=== PATIENT | female | born 1955 | race Caucasian/White ===

== ENCOUNTER 2016-10-07 16:45 | Inpatient (IN) | payer OTHER ==
[~2016-10-07] VITALS: Ht 165.1 cm; Wt 54.4 kg
[~2016-10-07 16:45] MED LIST: ALBU8.5H3; ASPI-535; CLON-429; FLUO20CA38; MAGN2400; METO-448; QUET400T; TEMA30CA6
[2016-10-07] MEDS ORDERED: LEVALBUTEROL (NEB) 1.25 MG/0.5 ML AMP INH STA (16:47)
[2016-10-07] MEDS ORDERED: SOD CHLORIDE 0.9% 500 ML IV STA (16:47)
[2016-10-07] MEDS ORDERED: ALBUTEROL 0.5% (NEB) 2.5 MG/0.5 ML AMP INH STA (16:47)
[2016-10-07] MEDS ORDERED: LEVOFLOXACIN 500MG/D5W (PMX) 100 ML IV STA (16:47)
[2016-10-07] MEDS ORDERED: MAGNESIUM SULFATE 2 GM/50 ML 50 ML IVPB STA (16:47)
[2016-10-07] MEDS ORDERED: METHYLPREDNISOLONE 125 MG INJ IV STA (16:47)
[2016-10-07] MEDS ORDERED: TERBUTALINE 1 MG/ML INJ SC STA (16:47)
[2016-10-07] MEDS ORDERED: IPRATROPIUM (NEB) 0.5 MG/2.5 ML AMP INH STA (16:52)
[2016-10-07] MEDS ORDERED: IPRATROPIUM (NEB) 0.5 MG/2.5 ML AMP ONE (16:53)
[2016-10-07 17:11] LABS: ADD SCAN DIFF NO
[2016-10-07 17:13] LABS: BASOPHILS % 0.2 % (0.0-2.0); EOSINOPHILS # 0.1 10^3/ul (0.0-0.5); EOSINOPHILS % 0.7 % (0.0-7.0); HEMATOCRIT 34.8 % (37.0-47.0); HEMOGLOBIN 11.3 g/dl (12.0-16.0); LYMPHOCYTES # 1.3 10^3/ul (0.8-2.9); LYMPHOCYTES % 11.3 % (15.0-51.0); MEAN CORPUSCULAR HEMOGLOBIN 27.8 pg (29.0-33.0); MEAN CORPUSCULAR HGB CONC 32.5 g/dl (32.0-37.0); MEAN CORPUSCULAR VOLUME 85.7 fl (82.0-101.0); MEAN PLATELET VOLUME 8.6 fl (7.4-10.4); MONOCYTE # 0.8 10^3/ul (0.3-0.9); NEUTROPHIL # 9.2 10^3/ul (1.6-7.5); NEUTROPHILS % 80.3 % (39.0-77.0); PLATELET COUNT 360 10^3/UL (140-415); RED BLOOD COUNT 4.06 10^6/ul (4.20-5.40); RED CELL DISTRIBUTION WIDTH 11.8 % (11.5-14.5); WHITE BLOOD COUNT 11.5 10^3/ul (4.8-10.8)
[2016-10-07] MEDS ORDERED: EPINEPHrine 1 MG INJ IM STA (17:16)
--- NOTE | 2016-10-07 17:32 | ERA ---
ER Documentation Chief Complaint Date/Time DATE: 10/07/16 TIME: 17:27 Chief Complaint COPD FLARE UP SOB SINCE 3 AM THIS MORNING HPI 61-year-old female history of remote smoking with COPD who presents with COPD flare. She states that she had a recent hospitalization approximately 1-2 weeks ago at [facility]. She has worsening symptoms over the last week despite taking her medications. No chest pain, no pleuritic pain, no calf swelling, no fevers or chills. ROS All systems reviewed and are negative except as per history of present illness. Medications Home Meds Reported Medications Hydroxyzine Hcl* (Hydroxyzine Hcl*) 25 Mg Tablet, 25 MG PO Q8H Y for ITCHING, # 30 TAB 10/07/16 Paliperidone (Invega) 1.5 Mg Tab.er.24, 1.5 MG PO DAILY, TAB 10/07/16 Tiotropium [place]* (Spiriva*) 18 Mcg Cap.w.dev, 1 CAP INHALATION DAILY, #30 CAP 10/07/16 Clomipramine Hcl* (Clomipramine Hcl*) 75 Mg Capsule, 75 MG PO DAILY, CAP 10/07/16 Salmeterol Xinaf/Fluticasone* (Advair*) 250-50 Diskus Inhaler, 1 INH INHALATION BID, #1 INHALER 10/07/16 Clonazepam* (Clonazepam*) 1 Mg Tablet, 1 MG PO Q8H Y for ANXIETY, TAB 10/07/16 Discontinued Reported Medications Aspirin Ec (Aspir 81) 81 Mg Tablet.dr 09/18/09 Metoprolol Tartrate* (Lopressor*) 25 Mg Tab 09/18/09 Fluoxetine Hcl* (Prozac*) 20 Mg Capsule 09/18/09 Temazepam* (Restoril*) 30 Mg Capsule 09/18/09 Clonazepam* (Klonopin*) 0.5 Mg Tab 09/18/09 Quetiapine Fumarate* (Seroquel*) 400 Mg Tablet 09/18/09 Albuterol Sulfate* (Proair HFA*) 8.5 Gm Hfa.aer.ad 09/18/09 Magnesium Hydroxide* (Milk Of Magnesia*) 800 Mg/5 Ml Oral.susp 09/18/09 Allergies Allergies: Coded Allergies: Penicillins (Verified Allergy, Mild, RASH, 10/07/16) PMhx/Soc History of Surgery: Yes (TUBES TIED) Anesthesia Reaction: No Hx Neurological Disorder: No Hx Respiratory Disorders: Yes (ASTHMA) Hx Cardiac Disorders: Yes (HTN) Hx Psychiatric Problems: Yes (SCHIZO AFFECTIVE) Hx Miscellaneous Medical Probl: No Hx Alcohol Use: No Hx Substance Use: No Hx Tobacco Use: Yes Smoking Status: Current every day smoker FmHx Family History: No diabetes Physical Exam Vitals Vital Signs Date Time Temp Pulse Resp B/P Pulse Ox O2 Delivery O2 Flow Rate FiO2 10/07/16 18:42 99.1 108 20 155/79 100 Room Air 10/07/16 17:26 112 100 35 10/07/16 17:20 112 22 168/94 100 High Flow 10/07/16 17:09 Simple Mask 10/07/16 17:08 Simple Mask 10/07/16 16:58 110 20 84 21 10/07/16 16:50 97.1 105 30 210/106 99 Physical Exam General: Respiratory distress, speaking in very short sentences Head: Normocephalic, atraumatic. Eyes: Pupils equally reactive, EOM intact ENT: Moist mucous membranes Neck: Supple, no lymphadenopathy Respiratory: Respiratory distress, diffuse wheezing, decreased aeration Cardiovascular: RRR, no murmurs, rubs, or gallops Abdominal: Soft, non-tender, non-distended, no peritoneal signs : Deferred MSK: No edema, no unilateral swelling, 5/5 strength Neurologic: Alert and oriented, moving all extremities, no focal weakness, no cerebellar signs Skin: No rash Psych: Normal mood Result Diagram: 10/07/16 1700 10/07/16 1700 Results 24 hrs Laboratory Tests Test 10/07/16 17:00 White Blood Count 11.510^3/ul Red Blood Count 4.0610^6/ul Hemoglobin 11.3g/dl Hematocrit 34.8% Mean Corpuscular Volume 85.7fl Mean Corpuscular Hemoglobin 27.8pg Mean Corpuscular Hemoglobin Concent 32.5g/dl Red Cell Distribution Width 11.8% Platelet Count 96074^3/UL Mean Platelet Volume 8.6fl Neutrophils % 80.3% Lymphocytes % 11.3% Monocytes % 7.0% Eosinophils % 0.7% Basophils % 0.2% Nucleated Red Blood Cells % 0.0/100WBC Neutrophils # 9.210^3/ul Lymphocytes # 1.310^3/ul Monocytes # 0.810^3/ul Eosinophils # 0.110^3/ul Basophils # 0.010^3/ul Nucleated Red Blood Cells # 0.010^3/ul Sodium Level 126mmol/L Potassium Level 4.3mmol/L Chloride Level 79mmol/L Carbon Dioxide Level 35mmol/L Anion Gap 16 Blood Urea Nitrogen 17mg/dl Creatinine 0.85mg/dl Glucose Level 159mg/dl Calcium Level 9.2mg/dl Current Medications Medications (Trade) Dose Ordered Sig/Joshua Route PRN Reason Start Time Stop Time Status Last Admin Dose Admin Sodium Chloride (NS) 500 ml @ 500 mls/hr Q1H STAT IV 10/07/16 16:47 10/07/16 17:46 DC 10/07/16 17:08 Albuterol (Proventil 0.5% (Neb)) 15 mg ONCE STAT INH 10/07/16 16:47 10/07/16 16:51 DC 10/07/16 16:57 Levalbuterol (Xopenex Neb) 5 mg ONCE STAT INH 10/07/16 16:47 10/07/16 16:54 DC Methylprednisolone Sodium Succinate 125 mg 125 mg ONCE STAT IV 10/07/16 16:47 10/07/16 16:51 DC 10/07/16 17:02 Magnesium Sulfate (Magnesium Sulfate 2 Gm/50 ml) 50 ml @ 25 mls/hr ONCE STAT IVPB 10/07/16 16:47 10/07/16 18:46 DC 10/07/16 17:02 Terbutaline Sulfate 0.25 mg 0.25 mg ONCE STAT SC 10/07/16 16:47 10/07/16 16:51 DC 10/07/16 17:02 Levofloxacin/ Dextrose (Levaquin 500mg/ D5W 100 ml (Pmx)) 100 ml @ 100 mls/hr ONCE STAT IV 10/07/16 16:47 10/07/16 17:46 DC 10/07/16 17:41 Ipratropium [place] (Atrovent 0.02% (Neb)) 1 mg ONCE STAT INH 10/07/16 16:52 10/07/16 16:54 DC 10/07/16 16:57 Ipratropium [place] (Atrovent 0.02% (Neb)) 0.5 mg STK-MED ONCE .ROUTE 10/07/16 16:53 10/07/16 16:54 DC Epinephrine (EPINEPHrine) 0.3 mg ONCE STAT IM 10/07/16 17:16 10/07/16 17:18 DC 10/07/16 17:22 Procedures/MDM EKG, MONITORS, & DIAGNOSTIC IMAGING: Radiology read IMPRESSION: 1. Possible left hilar mass in left upper lobe atelectasis. Correlation with CT scan of the chest with contrast advised. 2. Otherwise normal chest x-ray. RPTAT: QQ EKG: I reviewed and interpreted a 12-lead EKG. Rhythm: Sinus tachycardia, wandering baseline Ectopy: None Intervals: No abnormalities ST segments: No elevations or depressions T waves: No contiguous inversions LAB INTERPRETATION: No leukocytosis, hyponatremia MEDICAL DECISION MAKING: The patient has a history of COPD with increasing shortness of breath and respiratory distress. Upon arrival the patient is in significant respiratory distress. An hour-long breathing treatment was initiated. Patient did not have any interval improvement was started on BiPAP. The patient will require ICU level of care. Empiric antibiotics for COPD exacerbation initiated. The patient was given Levaquin. No evidence of pneumonia. The patient was also given Solu-Medrol, breathing treatment, terbutaline and epinephrine given no significant response to these medications. ER COURSE: The patient has stabilized and improved on BiPAP. The patient does not require intubation. Continue to monitor with serial nebs. ICU level of care appropriate. I kept the patient and/or family informed of laboratory and diagnostic imaging results throughout the emergency room course. DISPOSITION PLAN: ICU for management of acute respiratory failure secondary to COPD with exacerbation CONSULTATION: Accepting care team and consultations: I discussed the current laboratory data, diagnostic imaging and emergency care provided. Admitting team: Dr. Davila Admitting team indication: Insurance directed Critical Care Note: Total time: 57 minutes Indication/Organ System Threat: Acute respiratory failure I spent the above amount of critical care time with the patient, not including billable procedures. This included chart review, consultations, repeat bedside evaluations, and titration of appropriate medications to prevent cardiopulmonary or respiratory collapse. Departure Diagnosis: Primary Impression: Chronic obstructive pulmonary disease Qualified Code: J44.1 - Chronic obstructive pulmonary disease with acute exacerbation Additional Impressions: Acute respiratory failure Qualified Code: J96.00 - Acute respiratory failure, unspecified whether with hypoxia or hypercapnia Hyponatremia Condition: Serious JOSE RENEE MD Oct 07, 2016 17:31
[2016-10-07 17:33] LABS: CALCIUM 9.2 mg/dl (8.4-10.2); CREATININE 0.85 mg/dl (0.44-1.00); POTASSIUM 4.3 mmol/L (3.5-5.1)
[2016-10-07] MEDS ORDERED: CLON1TAB3 PO (17:53)
[2016-10-07] MEDS ORDERED: ADV25050 INHALATION (17:53)
[2016-10-07] MEDS ORDERED: [UNRECOGNIZED DRUG - CODE] PO (17:54)
[2016-10-07] MEDS ORDERED: TIOT18CA INHALATION (17:54)
[2016-10-07] MEDS ORDERED: PALI1.5T PO (17:54)
[2016-10-07] MEDS ORDERED: HYDR-3011 PO (17:55)
--- NOTE | 2016-10-07 18:22 | RADRPT ---
PROCEDURE: XR Chest. CLINICAL INDICATION: Shortness of breath. Asthma exacerbation. TECHNIQUE: Single frontal view. COMPARISON: 02/04/2009. FINDINGS: The right lung is clear. There is a possible left hilar mass and left upper lobe atelectasis. The left mid and lower lung zones are clear. The heart size is normal. There is no pleural effusion. There is no pneumothorax. IMPRESSION: 1. Possible left hilar mass in left upper lobe atelectasis. Correlation with CT scan of the chest with contrast advised. 2. Otherwise normal chest x-ray. RPTAT: QQ .Abhinav Gonsales MD, MD Date Time Electronically viewed and signed by .Abhinav Gonsales MD, MD on 10/07/2016 18:21 .R/
[2016-10-07 18:42] VITALS: TEMP 99.1
[2016-10-07] MEDS ORDERED: DOCUSATE SODIUM 100 MG CAP PO PRN (19:30)
[2016-10-07] MEDS ORDERED: GLUCOSE GEL 15 GRAM TUBE PO PRN ×2 (19:30)
[2016-10-07] MEDS ORDERED: ONDANSETRON 4 MG INJ IV PRN (19:30)
[2016-10-07] MEDS ORDERED: ACETAMINOPHEN 325 MG TAB PO PRN (19:30)
[2016-10-07] MEDS ORDERED: morphine 2 MG INJ IV PRN (19:30)
[2016-10-07] MEDS ORDERED: DEXTROSE 50% 50 ML SYRINGE IV PRN ×2 (19:30)
[2016-10-07] MEDS ORDERED: NACL 0.9% 3 ML SYG IV SCH (19:30)
[2016-10-07] MEDS ORDERED: hydrALAzine 20 MG INJ IV PRN (19:30)
[2016-10-07] MEDS ORDERED: LORAZEPAM 2 MG INJ IV PRN (19:30)
[2016-10-07] MEDS ORDERED: GLUCOSE GEL 15 GRAM TUBE BUCCAL PRN (19:30)
[2016-10-07] MEDS ORDERED: NA PHOSPHATE/BIPHOS 133 ML ENEMA PR PRN (19:30)
[2016-10-07] MEDS ORDERED: NITROGLYCERIN (SL) 0.4 MG TAB SL PRN (19:30)
[2016-10-07] MEDS ORDERED: GLUCAGON 1 MG INJ IM PRN (19:30)
[2016-10-07 19:50] LABS: INR 0.91; PROTIME 12.2 Sec (12.2-14.2)
[2016-10-07 19:51] LABS: PARTIAL THROMBOPLASTIN TIME 30.3 Sec (25.0-35.0)
[2016-10-07 20:21] LABS: AADO2 Arterial 32.8 mmHg (7.0-24.0); Allen Test ACCEPTAB; Arterial Base Excess 1.6 mmol/L (-3.0-3); Arterial COHb 0.3 % (0.0-3.0); Arterial Fraction of Oxyhgb 96.6 % (93.0-99.0); Arterial HCO3 28.6 mmol/L (22.0-26.0); Arterial MetHb 0.3 % (0.0-1.5); Arterial Total Hemglobin 12.4 g/dl (12.0-18.0); MODE NASAL CANNULA
[2016-10-07] MEDS: ALBUTEROL/IPRATROPIUM (NEB) 3 ML AMP HHN SCH (20:34)
[2016-10-07 22:04] VITALS: PULSE 104
[2016-10-07 22:16] VITALS: BP 139/75; RESP 17
[2016-10-07 22:36] VITALS: Ht 165.1 cm; Wt 54.4 kg
[2016-10-07] MEDS: HEPARIN 5,000 UNIT/0.5 ML VIAL SC SCH (22:45)
[2016-10-07] MEDS: SOD CHLORIDE 0.45% 1,000 ML IV SCH (23:07)
[2016-10-08] VITALS (12 sets, daily range): BP systolic 138–171; BP diastolic 66–92; PULSE 85–105; RESP 16–18
[2016-10-08] MEDS: SALMETEROL/FLUTICASONE 250/50 INHA INH SCH ×3 (00:49→21:51)
[2016-10-08] MEDS: INSULIN ASPART [NOVOLOG] 3 ML PEN SC SCH ×7 (00:54→21:00)
[2016-10-08] MEDS: METHYLPREDNISOLONE 125 MG INJ IV SCH ×3 (00:57→12:35)
--- NOTE | 2016-10-08 01:13 | HP ---
Date/Time of Note Date/Time of Note DATE: 10/08/16 TIME: 01:07 Assessment/Plan VTE Prophylaxis VTE Prophylaxis Intervention: heparin Lines/Catheters IV Catheter Type (from Nrs): Peripheral IV Assessment/Plan Chief Complaint/Hosp Course This is a 61-year-old female being admitted to telemetry floor for: #1 COPD exacerbation: Patient and initially was deemed an ICU admission however patient improved through treatments in the ER and was deemed stable for telemetry. Duo nebs every 4 hours, IV Levaquin, IV steroids with transition to p.o. as clinically indicated. Continue home inhalers. #2 schizoaffective disorder: Continue IMV EGA, will hold come clomipramine at the current time secondary as a likely cause the patient's hyponatremia is resolved most likely of SIADH. #3 hyponatremia: This likely appears to be secondary to SIADH as a result of patient's antipsychotic meds. Will order a urine osmolality and a urine sodium level. Will put patient on 800 cc fluid restriction. Will consult nephrology. #4 Possible hilar mass: Chest x-ray shows possible hilar mass on the left lung , was recommended to order a CT of the chest with contrast order was placed. #5 Elevated blood sugar: patient does not report diabetes, however elevated blood sugars on admission. Will check a1c. ISS for the mean time and carb controlled diet. #6 anemia: Anemia of chronic disease versus iron deficiency. At the current time MCV is 85. Will check iron studies. #7 DVT and GI prophylaxis: Heparin, Protonix Further treatment strategy as per the clinical course Problems: HPI/ROS Admit Date/Time Admit Date/Time Oct 07, 2016 at 21:27 Hx of Present Illness Chief complaint: Shortness of breath 1 week 61-year-old female history of remote smoking with COPD who presents with COPD flare. She states that she had a recent hospitalization approximately 1-2 weeks ago at [facility]. She has worsening symptoms over the last week despite taking her medications. No chest pain, no pleuritic pain, no calf swelling, no fevers or chills. Scant phlegm production. Allergies: Penicillin Medications: See KEANU CARDOSO Const: As per HPI Eyes : No pain discharge or redness or change in visual acuity ENT: No pain, sore throat, congestion, congestion, dysphagia or discharge Respiratory: As per HPI Cardiovascular: No chest pain, palpitation, PND, or edema GI : no change in appetite, abdominal pain, nausea, vomiting, diarrhea, constipation, or change in the color his stool Genitourinary: No dysuria, hematuria, flank pain , discharge or CVA tenderness Musculoskeletal: No joint pain, back pain, neck pain, restricted range of motion in neck or joints Skin: No rash, bruising or hives Neuro: No headache, dizziness, syncope, seizure, focal weakness Endocrine: No polyuria, polydipsia, temperature intolerance Psych: No hallucination, depression, anxiety or suicidal ideation PMH/Family/Social Past Medical History COPD, schizoaffective disorder, anemia, diabetes? Past Surgical History Tubal ligation, vaginal surgery Family History Significant Family History: hypertension (Mom) Social History Smoking Status: Former smoker Exam/Review of Systems Vital Signs Vitals Vital Signs Date Time Temp Pulse Resp B/P Pulse Ox O2 Delivery O2 Flow Rate FiO2 10/08/16 00:24 98.2 93 17 140/78 99 10/07/16 22:50 Nasal Cannula 2.0 10/07/16 22:30 30 Exam Exam General: Patient is well-developed well-nourished female lying in bed in no acute distress HEENT: Atraumatic, normocephalic. The pupils are equal, round and reactive. Extraocular motor are intact Neck: Supple with full range of motion. No rigidity or meningismus Chest: Nontender Lungs: Coarse breath sounds bilaterally, mild expiratory wheezing bilaterally Heart: Normal S1-S2, Regular rhythm and rate. No murmur, S3, or S4 Abdomen: Soft , nontender, nondistended , bowel sounds are present. No guarding no rebound tenderness , No masses or organomegaly. No costovertebral temporal angle mass Extremities: Normal to inspection, no edema no cyanosis Neurologic: Normal mental status, speech normal, cranial nerves II through XII are intact, motor and sensory are intact, no focal weakness Additional Comments PROCEDURE: XR Chest. CLINICAL INDICATION: Shortness of breath. Asthma exacerbation. TECHNIQUE: Single frontal view. COMPARISON: 02/04/2009. FINDINGS: The right lung is clear. There is a possible left hilar mass and left upper lobe atelectasis. The left mid and lower lung zones are clear. The heart size is normal. There is no pleural effusion. There is no pneumothorax. IMPRESSION: 1. Possible left hilar mass in left upper lobe atelectasis. Correlation with CT scan of the chest with contrast advised. 2. Otherwise normal chest x-ray. RPTAT: QQ .Abhinav Gonsales MD, Date Time Electronically viewed and signed by .Abhinav Gonsales MD, on 10/07/2016 18:21 Labs Result Diagram: 10/07/16 1700 10/07/16 1700 Medications Medications Current Medications Ondansetron HCl (Zofran Inj) 4 mg Q6H PRN IV NAUSEA AND/OR VOMITING; Start 10/07 at 19:30 Acetaminophen (Tylenol Tab) 650 mg Q6H PRN PO PAIN LEVEL 1-3 OR FEVER; Start at 19:30 Acetaminophen/ Hydrocodone Bitart ([place] (5/325)) 1 tab Q6H PRN PO MODERATE PAIN LEVEL 4-6; Start 10/07/16 at 19:30 Morphine Sulfate (morphine) 2 mg Q4H PRN IV SEVERE PAIN LEVEL 7-10; Start at 19:30 Docusate Sodium (Colace) 100 mg Q12H PRN PO CONSTIPATION; Start 10/07/16 at 19: 30 Magnesium Hydroxide (Milk Of Mag) 30 ml DAILY PRN PO CONSTIPATION; Start at 19:30 Sodium Biphosphate/ Sodium Phosphate (Fleet Enema) 133 ml DAILY PRN [place] CONSTIPATION; Start 10/07/16 at 19:30 Pantoprazole (Protonix Iv) 40 mg DAILY@06 IV ; Start 10/08/16 at 06:00 Heparin Sodium (Porcine) 5000 unit 5,000 unit Q12 SC Last administered on 22:45; Admin Dose 5,000 UNIT; Start 10/07/16 at 21:00 Sodium Chloride (1/2 NS) 1,000 ml @ 75 mls/hr [id number] IV Last administered on 10/07/16 23:07; Admin Dose 75 MLS/HR; Start 10/07/16 at 19:16 Lorazepam 0.5 mg 0.5 mg Q6H PRN IV ANXIETY; Start 10/07/16 at 19:30 Levofloxacin/ Dextrose (Levaquin 750 Mg/ D5W 150 ml (Pmx)) 150 ml @ 100 mls/hr DAILY IVPB ; Start 10/08/16 at 09:00 Hydralazine HCl (Apresoline) 10 mg Q6H PRN IV ELEVATED BLOOD PRESSURE; Start at 19:30 Nitroglycerin (Nitroglycerin (Sl Tab) 0.4 Mg) 1 tab Q5M PRN SL ANGINA; Start at 19:30 Insulin Aspart (Novolog Insulin Pen) NOVOLOG *MILD* ALGORI... Q4 SC Last administered on 10/08/16 00:54; Admin Dose 1 UNIT; Start 10/07/16 at 21:00 Salmeterol Xinafoate/ Fluticasone (Advair 250/50 Diskus) 1 inh BID INH Last administered on 10/08/16 00:49; Admin Dose 1 INH; Start 10/07/16 at 21:00 Methylprednisolone Sodium Succinate (Solu-Medrol) 80 mg Q6 IV Last administered on 10/08/16 00:57; Admin Dose 80 MG; Start 10/08/16 at 00:00 Miscellaneous Information 1 ea NOTE XX ; Start 10/07/16 at 19:30 Glucose (Glutose) 15 gm Q15M PRN PO DECREASED GLUCOSE; Start 10/07/16 at 19:30 Glucose (Glutose) 22.5 gm Q15M PRN PO DECREASED GLUCOSE; Start 10/07/16 at 19:30 Dextrose (D50w Syringe) 25 ml Q15M PRN IV DECREASED GLUCOSE; Start 10/07/16 at 19:30 Dextrose (D50w Syringe) 50 ml Q15M PRN IV DECREASED GLUCOSE; Start 10/07/16 at 19:30 Glucagon (Glucagen) 1 mg Q15M PRN IM DECREASED GLUCOSE; Start 10/07/16 at 19:30 Glucose (Glutose) 15 gm Q15M PRN BUCCAL DECREASED GLUCOSE; Start 10/07/16 at 19: 30 CAROL ALEX Oct 08, 2016 01:13
[2016-10-08] MEDS: ALBUTEROL/IPRATROPIUM (NEB) 3 ML AMP HHN SCH ×6 (01:32→21:58)
[2016-10-08] MEDS: PANTOPRAZOLE 40 MG INJ IV SCH (05:24)
[2016-10-08 07:23] LABS: CHOL/HDL RATIO 1.5 RATIO
[2016-10-08 07:45] LABS: THYROID STIMULATING HORMONE 0.552 MIU/L (0.465-4.680)
[2016-10-08 08:27] LABS: ADD SCAN DIFF NO
[2016-10-08 08:29] LABS: ABNORMAL IP MESSAGE 1; HEMATOCRIT 33.1 % (37.0-47.0); LYMPHOCYTES # 0.5 10^3/ul (0.8-2.9); LYMPHOCYTES % 8.3 % (15.0-51.0); MEAN CORPUSCULAR HGB CONC 33.2 g/dl (32.0-37.0); MEAN CORPUSCULAR VOLUME 84.2 fl (82.0-101.0); MEAN PLATELET VOLUME 9.5 fl (7.4-10.4); MONOCYTE # 0.1 10^3/ul (0.3-0.9); MONOCYTES % 1.7 % (0.0-11.0); NEUTROPHIL # 5.2 10^3/ul (1.6-7.5); NEUTROPHILS % 89.5 % (39.0-77.0); PLATELET COUNT 362 10^3/UL (140-415); RED BLOOD COUNT 3.93 10^6/ul (4.20-5.40); RED CELL DISTRIBUTION WIDTH 12.1 % (11.5-14.5); WHITE BLOOD COUNT 5.8 10^3/ul (4.8-10.8)
[2016-10-08] MEDS: SOD CHLORIDE 0.45% 1,000 ML IV SCH ×3 (08:36→21:56)
[2016-10-08] MEDS: LEVOFLOXACIN 750MG/D5W (PMX) 150 ML IVPB SCH (08:41)
[2016-10-08] MEDS: TIOTROPIUM 18 MCG CAPSULE INHA DEV INH SCH (08:42)
[2016-10-08 08:43] LABS: IRON 54 ug/dl (35-150)
[2016-10-08 08:46] LABS: CALCIUM 9.5 mg/dl (8.4-10.2); CREATININE 0.57 mg/dl (0.44-1.00); PHOSPHORUS 4.1 mg/dl (2.5-4.9); POTASSIUM 4.6 mmol/L (3.5-5.1)
[2016-10-08 08:52] LABS: TOTAL IRON BINDING CAPACITY 308 ug/dl (241-421)
[2016-10-08] MEDS: HEPARIN 5,000 UNIT/0.5 ML VIAL SC SCH ×2 (08:52→21:00)
[2016-10-08] MEDS ORDERED: TIOTROPIUM 18 MCG CAPSULE INHA DEV INH SCH (09:00)
[2016-10-08] MEDS ORDERED: PALIPERIDONE 1.5 MG PO SCH (09:00)
--- NOTE | 2016-10-08 11:05 | PN ---
Date/Time of Note Date/Time of Note DATE: 10/08/16 TIME: 11:04 Assessment/Plan VTE Prophylaxis VTE Prophylaxis Intervention: heparin Lines/Catheters IV Catheter Type (from Nrs): Peripheral IV Assessment/Plan Chief Complaint/Hosp Course A/P: 61-year-old female being admitted to telemetry floor for: #1 COPD exacerbation: Patient and initially was deemed an ICU admission however patient improved through treatments in the ER and was deemed stable for telemetry. - continue Duo nebs every 4 hours, IV Levaquin, IV steroids with transition to p.o. as clinically indicated. - Continue home inhalers. #2 schizoaffective disorder: Continue IMV EGA, - holding home clomipramine at the current time secondary as a likely cause the patient's hyponatremia (resolving) #3 hyponatremia: This likely appears to be secondary to SIADH as a result of patient's antipsychotic meds. Improved now - f/u urine osmolality and a urine sodium level. - fluid restriction. #4 Possible hilar mass: Chest x-ray shows possible hilar mass on the left lung - f/u CT of the chest with contrast order was placed. - pulm consult #5 Elevated blood sugar: patient does not report diabetes, however elevated blood sugars on admission. Will check a1c. ISS for the mean time and carb controlled diet. #6 anemia: Anemia of chronic disease versus iron deficiency. At the current time MCV is 85. - f/u iron studies. #7 DVT and GI prophylaxis: Heparin, Protonix Problems: Subjective 24 Hr Interval Summary Free Text/Dictation Pt still with significant SOB. Exam/Review of Systems Vital Signs Vitals Vital Signs Date Time Temp Pulse Resp B/P Pulse Ox O2 Delivery O2 Flow Rate FiO2 10/08/16 08:59 86 20 99 Nasal Cannula 3.0 10/08/16 07:15 98.0 156/84 10/07/16 22:30 30 Exam Const: As per HPI Eyes : No pain discharge or redness or change in visual acuity ENT: No pain, sore throat, congestion, congestion, dysphagia or discharge Respiratory: + B/L wheezing L>R Cardiovascular: No chest pain, palpitation, PND, or edema GI : no change in appetite, abdominal pain, nausea, vomiting, diarrhea, constipation, or change in the color his stool Genitourinary: No dysuria, hematuria, flank pain , discharge or CVA tenderness Musculoskeletal: No joint pain, back pain, neck pain, restricted range of motion in neck or joints Skin: No rash, bruising or hives Neuro: No headache, dizziness, syncope, seizure, focal weakness Endocrine: No polyuria, polydipsia, temperature intolerance Psych: No hallucination, depression, anxiety or suicidal ideation Results Result Diagram: 10/08/16 0615 10/08/16 0615 Results 24 hrs Laboratory Tests Test 10/07/16 17:00 10/07/16 17:32 10/07/16 19:16 10/08/16 00:48 White Blood Count 11.5 H Red Blood Count 4.06 L Hemoglobin 11.3 L Hematocrit 34.8 L Mean Corpuscular Volume 85.7 Mean Corpuscular Hemoglobin 27.8 L Mean Corpuscular Hemoglobin Concent 32.5 Red Cell Distribution Width 11.8 Platelet Count 360 Mean Platelet Volume 8.6 Neutrophils % 80.3 H Lymphocytes % 11.3 L Monocytes % 7.0 Eosinophils % 0.7 Basophils % 0.2 Nucleated Red Blood Cells % 0.0 Neutrophils # 9.2 H Lymphocytes # 1.3 Monocytes # 0.8 Eosinophils # 0.1 Basophils # 0.0 Nucleated Red Blood Cells # 0.0 Sodium Level 126 L Potassium Level 4.3 Chloride Level 79 L Carbon Dioxide Level 35 H Anion Gap 16 Blood Urea Nitrogen 17 Creatinine 0.85 Glucose Level 159 Calcium Level 9.2 Prothrombin Time 12.2 Prothrombin Time Ratio 1.0 INR International Normalized Ratio 0.91 Activated Partial Thromboplast Time 30.3 Osmolality 267 L Free Thyroxine 1.13 Blood Gas Specimen Source Blood arterial Arterial Blood Date Drawn 10/07/2016 8:00:44 PM Arterial Blood pH (Temp corrected) 7.328 L Arterial Blood pCO2 (Temp correct) 55.8 H Arterial Blood pO2 (Temp corrected) 101.0 H Arterial Blood HCO3 28.6 H Arterial Blood Base Excess 1.6 Arterial Blood Oxygen Saturation 97.2 Jose G Test ACCEPTAB Arterial Blood Gas Puncture Site Right Radial Arterial Blood Carboxyhemoglobin 0.3 Arterial Blood Methemoglobin 0.3 Blood Gas A-a O2 Differential 32.8 H Oxyhemoglobin Percent 96.6 Total Hemoglobin 12.4 Blood Gas Temperature 37.0 Blood Gas Actual Respiration Rate 22 Blood Gas Modality NASAL CANNULA FiO2 28.0 Blood Gas Critical Value Read Back BEN MERAZ Blood Gas Notified Whom BL Blood Gas Notified Time 10/07/2016 8:19:48 PM Bedside Glucose 143 Test 10/08/16 05:18 10/08/16 06:15 10/08/16 08:01 Bedside Glucose 162 158 White Blood Count 5.8 # Red Blood Count 3.93 L Hemoglobin 11.0 L Hematocrit 33.1 L Mean Corpuscular Volume 84.2 Mean Corpuscular Hemoglobin 28.0 L Mean Corpuscular Hemoglobin Concent 33.2 Red Cell Distribution Width 12.1 Platelet Count 362 Mean Platelet Volume 9.5 Neutrophils % 89.5 H Lymphocytes % 8.3 L Monocytes % 1.7 Eosinophils % 0.0 Basophils % 0.0 Nucleated Red Blood Cells % 0.0 Neutrophils # 5.2 Lymphocytes # 0.5 L Monocytes # 0.1 L Eosinophils # 0.0 Basophils # 0.0 Nucleated Red Blood Cells # 0.0 Sodium Level 135 Potassium Level 4.6 Chloride Level 91 #L Carbon Dioxide Level 32 H Anion Gap 17 H Blood Urea Nitrogen 13 Creatinine 0.57 Glucose Level 156 Hemoglobin A1c 6.2 H Calcium Level 9.5 Phosphorus Level 4.1 Magnesium Level 2.0 Iron Level 54 Total Iron Binding Capacity 308 Percent Iron Saturation 18 L Ferritin 89.5 Triglycerides Level 51 Cholesterol Level 178 LDL Cholesterol, Calculated 50 HDL Cholesterol 118 H Cholesterol/HDL Ratio 1.5 Thyroid Stimulating Hormone (TSH) 0.552 Medications Medications Current Medications Ondansetron HCl (Zofran Inj) 4 mg Q6H PRN IV NAUSEA AND/OR VOMITING; Start 10/07 at 19:30 Acetaminophen (Tylenol Tab) 650 mg Q6H PRN PO PAIN LEVEL 1-3 OR FEVER; Start at 19:30 Acetaminophen/ Hydrocodone Bitart ([place] (5/325)) 1 tab Q6H PRN PO MODERATE PAIN LEVEL 4-6; Start 10/07/16 at 19:30 Morphine Sulfate (morphine) 2 mg Q4H PRN IV SEVERE PAIN LEVEL 7-10; Start at 19:30 Docusate Sodium (Colace) 100 mg Q12H PRN PO CONSTIPATION; Start 10/07/16 at 19: 30 Magnesium Hydroxide (Milk Of Mag) 30 ml DAILY PRN PO CONSTIPATION; Start at 19:30 Sodium Biphosphate/ Sodium Phosphate (Fleet Enema) 133 ml DAILY PRN [place] CONSTIPATION; Start 10/07/16 at 19:30 Pantoprazole (Protonix Iv) 40 mg DAILY@06 IV Last administered on 10/08/16 05: 24; Admin Dose 40 MG; Start 10/08/16 at 06:00 Heparin Sodium (Porcine) 5000 unit 5,000 unit Q12 SC Last administered on 08:52; Admin Dose 5,000 UNIT; Start 10/07/16 at 21:00 Sodium Chloride (1/2 NS) 1,000 ml @ 75 mls/hr [id number] IV Last administered on 10/07/16 23:07; Admin Dose 75 MLS/HR; Start 10/07/16 at 19:16 Lorazepam 0.5 mg 0.5 mg Q6H PRN IV ANXIETY; Start 10/07/16 at 19:30 Levofloxacin/ Dextrose (Levaquin 750 Mg/ D5W 150 ml (Pmx)) 150 ml @ 100 mls/hr DAILY IVPB Last administered on 10/08/16 08:41; Admin Dose 100 MLS/HR; Start at 09:00 Hydralazine HCl (Apresoline) 10 mg Q6H PRN IV ELEVATED BLOOD PRESSURE; Start at 19:30 Nitroglycerin (Nitroglycerin (Sl Tab) 0.4 Mg) 1 tab Q5M PRN SL ANGINA; Start at 19:30 Insulin Aspart (Novolog Insulin Pen) NOVOLOG *MILD* ALGORI... Q4 SC Last administered on 10/08/16 08:17; Admin Dose 1 UNIT; Start 10/07/16 at 21:00 Salmeterol Xinafoate/ Fluticasone (Advair 250/50 Diskus) 1 inh BID INH Last administered on 10/08/16 08:42; Admin Dose 1 INH; Start 10/07/16 at 21:00 Methylprednisolone Sodium Succinate (Solu-Medrol) 80 mg Q6 IV Last administered on 10/08/16 05:24; Admin Dose 80 MG; Start 10/08/16 at 00:00 Miscellaneous Information 1 ea NOTE XX ; Start 10/07/16 at 19:30 Glucose (Glutose) 15 gm Q15M PRN PO DECREASED GLUCOSE; Start 10/07/16 at 19:30 Glucose (Glutose) 22.5 gm Q15M PRN PO DECREASED GLUCOSE; Start 10/07/16 at 19:30 Dextrose (D50w Syringe) 25 ml Q15M PRN IV DECREASED GLUCOSE; Start 10/07/16 at 19:30 Dextrose (D50w Syringe) 50 ml Q15M PRN IV DECREASED GLUCOSE; Start 10/07/16 at 19:30 Glucagon (Glucagen) 1 mg Q15M PRN IM DECREASED GLUCOSE; Start 10/07/16 at 19:30 Glucose (Glutose) 15 gm Q15M PRN BUCCAL DECREASED GLUCOSE; Start 10/07/16 at 19: 30 Clonazepam (Klonopin) 1 mg Q8H PRN PO ANXIETY; Start 10/08/16 at 06:30 Miscellaneous Information 1.5 mg DAILY PO ; Start 10/08/16 at 09:00; Status UNV Tiotropium [place] (Spiriva) 1 inh DAILY INH Last administered on 10/08/16t 08: 42; Admin Dose 1 INH; Start 10/08/16 at 09:00 ISSA MILLER Oct 08, 2016 11:05
--- NOTE | 2016-10-08 15:48 | CONS ---
Date/Time of Note Date/Time of Note DATE: 10/08/16 TIME: 15:40 Assessment/Plan Assessment/Plan Additional Assessment/Plan IMP: 1. Dyspnea and acute on chronic hypercapnic resp insufficiency--likely triggered by the left perihilar/ISRA mass causing airway compromise, thereby tipping her over. 2. ISRA lung mass--concern for primary bronchogenic cancer 3. Hoarse Voice--due to left recurrent laryngeal nerve palsy due to #2. RECS: 1. CT chest/abd/pelvis with IV contrast (diagnostic/staging) 2. Based on CT findings will discuss diagnostic modality (ie. bronchoscopic vs. CT-guided bx) 3. Taper solumedrol 4. Continue BD's Consultation Date/Type/Reason Admit Date/Time Oct 07, 2016 at 21:27 Type of Consultation: Pulmonary Hx of Present Illness Briefly, this is a 61-year-old female prior 20+ pack year smoker with history of COPD, s/p recent admit at [facility] for an exacerbation, where she was noted to have a left lung mass, however, did not undergo diagnostic work-up. She now presents with increasing dyspnea and acute on chronic hypercapnic resp insufficiency. Also c/o hoarse voice since April 2016. Constitutional: no complaints Eyes: no complaints ENT: no complaints Respiratory: shortness of breath Cardiovascular: no complaints Gastrointestinal: no complaints Musculoskeletal: no complaints Skin: no complaints Neurologic: no complaints Past Medical History COPD, schizoaffective disorder, anemia, diabetes? Past Surgical History tubal ligation Family History Significant Family History: no pertinent family hx, COPD Social History Alcohol Use: none Smoking Status: Former smoker Drug Use: none Exam/Review of Systems Vital Signs Vitals Vital Signs Date Time Temp Pulse Resp B/P Pulse Ox O2 Delivery O2 Flow Rate FiO2 10/08/16 12:41 93 10/08/16 12:25 20 98 Nasal Cannula 3.0 10/08/16 11:29 98.1 147/66 10/07/16 22:30 30 Exam Constitutional: alert, frail, oriented Head: atraumatic, normocephalic Eyes: EOMI, nl conjunctiva, nl sclera ENMT: mucosa pink and moist Neck: other (shotty cervical lymph nodes), supple Respiratory: other (wheezing Left lung ), wheezing Gastrointestinal: nl liver, spleen, non-tender, soft Extremities: normal pulses Results Result Diagram: 10/08/16 0615 10/08/16 0615 Results 24 hrs Laboratory Tests Test 10/07/16 17:00 10/07/16 17:32 10/07/16 19:16 10/08/16 00:48 White Blood Count 11.5 H Red Blood Count 4.06 L Hemoglobin 11.3 L Hematocrit 34.8 L Mean Corpuscular Volume 85.7 Mean Corpuscular Hemoglobin 27.8 L Mean Corpuscular Hemoglobin Concent 32.5 Red Cell Distribution Width 11.8 Platelet Count 360 Mean Platelet Volume 8.6 Neutrophils % 80.3 H Lymphocytes % 11.3 L Monocytes % 7.0 Eosinophils % 0.7 Basophils % 0.2 Nucleated Red Blood Cells % 0.0 Neutrophils # 9.2 H Lymphocytes # 1.3 Monocytes # 0.8 Eosinophils # 0.1 Basophils # 0.0 Nucleated Red Blood Cells # 0.0 Sodium Level 126 L Potassium Level 4.3 Chloride Level 79 L Carbon Dioxide Level 35 H Anion Gap 16 Blood Urea Nitrogen 17 Creatinine 0.85 Glucose Level 159 Calcium Level 9.2 Prothrombin Time 12.2 Prothrombin Time Ratio 1.0 INR International Normalized Ratio 0.91 Activated Partial Thromboplast Time 30.3 Osmolality 267 L Free Thyroxine 1.13 Blood Gas Specimen Source Blood arterial Arterial Blood Date Drawn 10/07/2016 8:00:44 PM Arterial Blood pH (Temp corrected) 7.328 L Arterial Blood pCO2 (Temp correct) 55.8 H Arterial Blood pO2 (Temp corrected) 101.0 H Arterial Blood HCO3 28.6 H Arterial Blood Base Excess 1.6 Arterial Blood Oxygen Saturation 97.2 Jose G Test ACCEPTAB Arterial Blood Gas Puncture Site Right Radial Arterial Blood Carboxyhemoglobin 0.3 Arterial Blood Methemoglobin 0.3 Blood Gas A-a O2 Differential 32.8 H Oxyhemoglobin Percent 96.6 Total Hemoglobin 12.4 Blood Gas Temperature 37.0 Blood Gas Actual Respiration Rate 22 Blood Gas Modality NASAL CANNULA FiO2 28.0 Blood Gas Critical Value Read Back BEN MERAZ Blood Gas Notified Whom BL Blood Gas Notified Time 10/07/2016 8:19:48 PM Bedside Glucose 143 Test 10/08/16 05:18 10/08/16 06:15 10/08/16 08:01 10/08/16 12:12 Bedside Glucose 162 158 154 White Blood Count 5.8 # Red Blood Count 3.93 L Hemoglobin 11.0 L Hematocrit 33.1 L Mean Corpuscular Volume 84.2 Mean Corpuscular Hemoglobin 28.0 L Mean Corpuscular Hemoglobin Concent 33.2 Red Cell Distribution Width 12.1 Platelet Count 362 Mean Platelet Volume 9.5 Neutrophils % 89.5 H Lymphocytes % 8.3 L Monocytes % 1.7 Eosinophils % 0.0 Basophils % 0.0 Nucleated Red Blood Cells % 0.0 Neutrophils # 5.2 Lymphocytes # 0.5 L Monocytes # 0.1 L Eosinophils # 0.0 Basophils # 0.0 Nucleated Red Blood Cells # 0.0 Sodium Level 135 Potassium Level 4.6 Chloride Level 91 #L Carbon Dioxide Level 32 H Anion Gap 17 H Blood Urea Nitrogen 13 Creatinine 0.57 Glucose Level 156 Hemoglobin A1c 6.2 H Calcium Level 9.5 Phosphorus Level 4.1 Magnesium Level 2.0 Iron Level 54 Total Iron Binding Capacity 308 Percent Iron Saturation 18 L Ferritin 89.5 Triglycerides Level 51 Cholesterol Level 178 LDL Cholesterol, Calculated 50 HDL Cholesterol 118 H Cholesterol/HDL Ratio 1.5 Thyroid Stimulating Hormone (TSH) 0.552 Medications Medications Current Medications Ondansetron HCl (Zofran Inj) 4 mg Q6H PRN IV NAUSEA AND/OR VOMITING; Start 10/07 at 19:30 Acetaminophen (Tylenol Tab) 650 mg Q6H PRN PO PAIN LEVEL 1-3 OR FEVER; Start at 19:30 Acetaminophen/ Hydrocodone Bitart ([place] (5/325)) 1 tab Q6H PRN PO MODERATE PAIN LEVEL 4-6; Start 10/07/16 at 19:30 Morphine Sulfate (morphine) 2 mg Q4H PRN IV SEVERE PAIN LEVEL 7-10; Start at 19:30 Docusate Sodium (Colace) 100 mg Q12H PRN PO CONSTIPATION; Start 10/07/16 at 19: 30 Magnesium Hydroxide (Milk Of Mag) 30 ml DAILY PRN PO CONSTIPATION; Start at 19:30 Sodium Biphosphate/ Sodium Phosphate (Fleet Enema) 133 ml DAILY PRN [place] CONSTIPATION; Start 10/07/16 at 19:30 Pantoprazole (Protonix Iv) 40 mg DAILY@06 IV Last administered on 10/08/16t 05: 24; Admin Dose 40 MG; Start 10/08/16 at 06:00 Heparin Sodium (Porcine) 5000 unit 5,000 unit Q12 SC Last administered on 08:52; Admin Dose 5,000 UNIT; Start 10/07/16 at 21:00 Sodium Chloride (1/2 NS) 1,000 ml @ 75 mls/hr [id number] IV Last administered on 10/08/16 14:43; Admin Dose 75 MLS/HR; Start 10/07/16 at 19:16 Lorazepam 0.5 mg 0.5 mg Q6H PRN IV ANXIETY; Start 10/07/16 at 19:30 Levofloxacin/ Dextrose (Levaquin 750 Mg/ D5W 150 ml (Pmx)) 150 ml @ 100 mls/hr DAILY IVPB Last administered on 10/08/16 08:41; Admin Dose 100 MLS/HR; Start at 09:00 Hydralazine HCl (Apresoline) 10 mg Q6H PRN IV ELEVATED BLOOD PRESSURE; Start at 19:30 Nitroglycerin (Nitroglycerin (Sl Tab) 0.4 Mg) 1 tab Q5M PRN SL ANGINA; Start at 19:30 Salmeterol Xinafoate/ Fluticasone (Advair 250/50 Diskus) 1 inh BID INH Last administered on 10/08/16 08:42; Admin Dose 1 INH; Start 10/07/16 at 21:00 Methylprednisolone Sodium Succinate (Solu-Medrol) 80 mg Q6 IV Last administered on 10/08/16 12:35; Admin Dose 80 MG; Start 10/08/16 at 00:00 Miscellaneous Information 1 ea NOTE XX ; Start 10/07/16 at 19:30 Glucose (Glutose) 15 gm Q15M PRN PO DECREASED GLUCOSE; Start 10/07/16 at 19:30 Glucose (Glutose) 22.5 gm Q15M PRN PO DECREASED GLUCOSE; Start 10/07/16 at 19:30 Dextrose (D50w Syringe) 25 ml Q15M PRN IV DECREASED GLUCOSE; Start 10/07/16 at 19:30 Dextrose (D50w Syringe) 50 ml Q15M PRN IV DECREASED GLUCOSE; Start 10/07/16 at 19:30 Glucagon (Glucagen) 1 mg Q15M PRN IM DECREASED GLUCOSE; Start 10/07/16 at 19:30 Glucose (Glutose) 15 gm Q15M PRN BUCCAL DECREASED GLUCOSE; Start 10/07/16 at 19: 30 Clonazepam (Klonopin) 1 mg Q8H PRN PO ANXIETY; Start 10/08/16 at 06:30 Miscellaneous Information 1.5 mg DAILY PO ; Start 10/08/16 at 09:00; Status UNV Tiotropium [place] (Spiriva) 1 inh DAILY INH Last administered on 10/08/16t 08: 42; Admin Dose 1 INH; Start 10/08/16 at 09:00 Diagnostic Test (Pha) (Accu-Chek) 1 ea 02 XX ; Start 10/09/16 at 02:00 HENRY LIND MD Oct 08, 2016 15:48
[2016-10-08] MEDS ORDERED: IOHEXOL 300MG/ML 150 ML BTL ONE (17:09)
[2016-10-08] MEDS ORDERED: SOD CHLORIDE 0.9% 100 ML ONE (17:09)
[2016-10-08] MEDS: METHYLPREDNISOLONE 40 MG INJ IV SCH (17:42)
--- NOTE | 2016-10-08 18:09 | RADRPT ---
PROCEDURE: CT Chest, Abdomen and Pelvis with contrast. CLINICAL INDICATION: Left lung mass. Hypertension and hoarseness. Abdominal and pelvic pain. TECHNIQUE: CT scan of the chest, abdomen, and pelvis with intravenous contrast was performed with helical axial sections. The patient was scanned during intravenous injection of 100 ml of Omnipaque -300 intravenous contrast. 2-D coronal reformatted images were obtained from the axial source image s. Total exam DLP is 348.39 mGy-cm. CTDIvol is 5.08 MGy. One or more of the following dose reduct ion techniques were used: Automated exposure control, adjustment of the mA and/or kV according to pa tient size, use of iterative reconstruction technique. COMPARISON: Chest x-ray dated 10/07/2016. FINDINGS: CT chest: There is a large confluent mass throughout the middle mediastinum surrounding the trachea, transvers e aorta, upper descending aorta, and left main pulmonary artery. The mass measures approximately 9. 0 x 10.0 x 9.5 cm in AP, transverse, and cranial caudal dimensions. There is associated marked narrowing of the distal trachea measuring as little as 0.5 cm in transver se dimension. There is also narrowing of the left mainstem bronchus measuring 0.6 cm in diameter wi th the right mainstem bronchus measuring 1.6 cm in diameter. There is probable occlusion of the lef t upper lobe bronchus with atelectasis throughout the entire left upper lobe. There is narrowing of the left main pulmonary artery measuring 1.1 cm. The right main pulmonary artery measures 2.2 cm. There is a small cavitary nodule posteriorly in the left lower lobe measuring 0.6 x 0.7 cm and a sma ll adjacent non cavitated nodule measuring 0.9 x 0.6 cm. There is no other pulmonary nodule or mass lesion. There is mild atelectasis at the right lung base posteriorly. There is no axillary, supraclavicular, or internal mammary lymphadenopathy. The thoracic aorta is not dilated. There is calcification in the aorta consistent with atherosclero sis. There is mild coronary artery calcification. There is a very small right pleural effusion and there is a small left pleural effusion. There is a small pericardial effusion. There is a left pneumothorax measuring approximately 20%. CT abdomen: The liver is enlarged. Hepatic attenuation is normal. There is no focal hepatic lesion. The gallbladder and bile ducts are normal. The spleen is normal in size. There is no focal splenic lesion. The pancreas is normal with no mass or evidence of pancreatitis. Both adrenals are normal with no enlargement or mass. Both kidneys demonstrate normal contrast enhancement. There is no renal mass or hydronephrosis. The abdominal aorta is not dilated. There is no retroperitoneal lymphadenopathy or mass. The bowel and mesentery are normal. There is no free fluid or free gas. CT pelvis: There is no pelvic lymphadenopathy or mass. The bladder and distal ureters are normal. The periappendiceal region is unremarkable with no evidence of appendicitis. The bowel and mesentery are normal. There is no free fluid or free gas. Osseous structures: There is no fracture. There is a lytic lesion in the right side of L4 vertebral body measuring 1.8 x 1.9 cm. There is loss of height of L4 vertebral body consistent with an old fracture with approxi mately 40% loss of height. There is an old compression fracture of T7 vertebral body with approxima tely 30% loss of height. IMPRESSION: 1. Large confluent mass throughout the middle mediastinum consistent with neoplasm. There is assoc iated marked narrowing of the distal trachea, narrowing of the left mainstem bronchus, narrowing of the left main pulmonary artery, and occlusion of the left upper lobe bronchus. 2. Small nodules in the left lower lobe posteriorly measuring 0.7 cm and 0.9 cm. 3. Mild atelectasis at the right lung base posteriorly. 4. Atherosclerosis. 5. Coronary artery calcification. 6. Very small right pleural effusion and small left pleural effusion. 7. Left pneumothorax measuring approximately 20%. 8. Hepatomegaly. No focal hepatic lesion. 9. Lytic lesion of the right side of L4 vertebral body measuring 1.8 x 1.9 cm suspicious for neopla sm. 10. Compression fractures of L4 and T7 vertebrae. Call report: A call report of the findings was made to Dr. Lopez on 10/08/2016 at 1750 hours. RPTAT: QQ .Abhinav Gonsales MD, Date Time Electronically viewed and signed by .Abhinav Gonsales MD, on 10/08/2016 18:09 .R/
[2016-10-09] VITALS (12 sets, daily range): BP systolic 149–170; BP diastolic 70–92; PULSE 90–103; RESP 16–18
[2016-10-09] MEDS: METHYLPREDNISOLONE 40 MG INJ IV SCH ×2 (00:20→06:02)
[2016-10-09] MEDS: ALBUTEROL/IPRATROPIUM (NEB) 3 ML AMP HHN SCH ×6 (01:15→20:46)
[2016-10-09] MEDS ORDERED: ACCU-CHEK XX SCH (02:00)
[2016-10-09] MEDS: ACCU-CHEK XX SCH (02:00)
[2016-10-09] MEDS: PANTOPRAZOLE 40 MG INJ IV SCH (06:02)
[2016-10-09] MEDS: INSULIN ASPART [NOVOLOG] 3 ML PEN SC SCH ×4 (07:55→21:00)
[2016-10-09] MEDS: LEVOFLOXACIN 750MG/D5W (PMX) 150 ML IVPB SCH (09:19)
[2016-10-09] MEDS: SALMETEROL/FLUTICASONE 250/50 INHA INH SCH ×2 (09:19→22:25)
[2016-10-09] MEDS: TIOTROPIUM 18 MCG CAPSULE INHA DEV INH SCH (09:19)
[2016-10-09] MEDS: HEPARIN 5,000 UNIT/0.5 ML VIAL SC SCH ×2 (09:22→22:26)
[2016-10-09 10:15] LABS: ADD SCAN DIFF NO
[2016-10-09 10:21] LABS: ABNORMAL IP MESSAGE 1; HEMATOCRIT 36.9 % (37.0-47.0); MEAN CORPUSCULAR HEMOGLOBIN 27.8 pg (29.0-33.0); MEAN CORPUSCULAR HGB CONC 32.5 g/dl (32.0-37.0); MEAN CORPUSCULAR VOLUME 85.6 fl (82.0-101.0); MEAN PLATELET VOLUME 8.9 fl (7.4-10.4); PLATELET COUNT 411 10^3/UL (140-415); RED BLOOD COUNT 4.31 10^6/ul (4.20-5.40); RED CELL DISTRIBUTION WIDTH 12.2 % (11.5-14.5); WHITE BLOOD COUNT 21.1 10^3/ul (4.8-10.8)
[2016-10-09 10:48] LABS: CALCIUM 9.3 mg/dl (8.4-10.2); CREATININE 0.63 mg/dl (0.44-1.00); POTASSIUM 3.8 mmol/L (3.5-5.1)
[2016-10-09 11:35] LABS: LYMPHOCYTES # 0.4 10^3/ul (0.8-2.9); MONOCYTE # 0.2 10^3/ul (0.3-0.9); NEUTROPHIL # 20.5 10^3/ul (1.6-7.5)
[2016-10-09 11:36] LABS: PLATELET ESTIMATE PLT APPEAR ADEQUATE
--- NOTE | 2016-10-09 12:05 | PN ---
Date/Time of Note Date/Time of Note DATE: 10/09/16 TIME: 11:57 Assessment/Plan VTE Prophylaxis VTE Prophylaxis Intervention: SCD's Lines/Catheters IV Catheter Type (from Nrs): [place] Assessment/Plan Assessment/Plan 61 yo F with pmhx schizophrenia, extensive tobacco hx, lung mass diagnosed ~1 month ago at OSH ([facility]) presented with SOB. Found to have large L lung mass clinically consistent with malignancy, imaging also revealed L sided partial PTX. #lung mass: pt refusing biopsy. Risks/benefits of further eval including finding out all of her options discussed with patient at length, she still declined. I also offered to call any family/friends pt involves in making tough decisions. She also refused this. Dw pt that given how large lung mass is, life expectancy is on order of months. 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 Stop IVFs, FW restriction #leukocytosis: malignancy v steroids. stopping steroids #schizophrenia: cont [facility] referral (dw patient) Subjective 24 Hr Interval Summary Free Text/Dictation States she does not want any work up of her lung mass, does not want her prolonged. Pedro pt at length that a biopsy and its results would at least let pt know what her options are as far as treatment, but patient refused. Requesting to be discharged as soon as safely possible. Exam/Review of Systems Vital Signs Vitals Vital Signs Date Time Temp Pulse Resp B/P Pulse Ox O2 Delivery O2 Flow Rate FiO2 10/09/16 11:50 98.0 67 18 170/86 98 10/09/16 08:30 Nasal Cannula 3.0 10/07/16 22:30 30 Intake and Output 10/08/16 10/08/16 10/09/16 15:00 23:00 07:00 Intake Total 1150 ml 600 ml 250 ml Balance 1150 ml 600 ml 250 ml Exam dyspneic with even short sentences no mrg no rashes abd soft no le edema Results Result Diagram: 10/09/16 0952 10/09/1652 Results 24 hrs Laboratory Tests Test 10/08/16 12:12 10/08/16 17:41 10/08/16 20:54 10/09/16 08:04 Bedside Glucose 154 113 143 133 Test 10/09/16 09:52 White Blood Count 21.1 #H Red Blood Count 4.31 Hemoglobin 12.0 Hematocrit 36.9 L Mean Corpuscular Volume 85.6 Mean Corpuscular Hemoglobin 27.8 L Mean Corpuscular Hemoglobin Concent 32.5 Red Cell Distribution Width 12.2 Platelet Count 411 Mean Platelet Volume 8.9 Neutrophils % 97.0 H Lymphocytes % 2.0 L Monocytes % 1.0 Neutrophils # 20.5 H Lymphocytes # 0.4 L Monocytes # 0.2 L Platelet Estimate PLT APPEAR ADEQUATE Sodium Level 126 L Potassium Level 3.8 Chloride Level 86 L Carbon Dioxide Level 30 Anion Gap 14 Blood Urea Nitrogen 17 Creatinine 0.63 Glucose Level 154 Calcium Level 9.3 Medications Medications Current Medications Ondansetron HCl (Zofran Inj) 4 mg Q6H PRN IV NAUSEA AND/OR VOMITING; Start 10/07 at 19:30 Acetaminophen (Tylenol Tab) 650 mg Q6H PRN PO PAIN LEVEL 1-3 OR FEVER; Start at 19:30 Acetaminophen/ Hydrocodone Bitart ([place] (5/325)) 1 tab Q6H PRN PO MODERATE PAIN LEVEL 4-6; Start 10/07/16 at 19:30 Morphine Sulfate (morphine) 2 mg Q4H PRN IV SEVERE PAIN LEVEL 7-10; Start at 19:30 Docusate Sodium (Colace) 100 mg Q12H PRN PO CONSTIPATION Last administered on 21:51; Admin Dose 100 MG; Start 10/07/16 at 19:30 Magnesium Hydroxide (Milk Of Mag) 30 ml DAILY PRN PO CONSTIPATION; Start at 19:30 Sodium Biphosphate/ Sodium Phosphate (Fleet Enema) 133 ml DAILY PRN [place] CONSTIPATION; Start 10/07/16 at 19:30 Pantoprazole (Protonix Iv) 40 mg DAILY@06 IV Last administered on 10/09/16 06: 02; Admin Dose 40 MG; Start 10/08/16 at 06:00 Heparin Sodium (Porcine) (Heparin (5000 Units/0.5 ml)) 5,000 unit Q12 SC Last administered on 10/09/16 09:22; Admin Dose 5,000 UNIT; Start 10/07/16 at 21:00 Lorazepam (Ativan) 0.5 mg Q6H PRN IV ANXIETY; Start 10/07/16 at 19:30 Nitroglycerin (Nitroglycerin (Sl Tab) 0.4 Mg) 1 tab Q5M PRN SL ANGINA; Start at 19:30 Salmeterol Xinafoate/ Fluticasone (Advair 250/50 Diskus) 1 inh BID INH Last administered on 10/09/16 09:19; Admin Dose 1 INH; Start 10/07/16 at 21:00 Miscellaneous Information 1 ea NOTE XX ; Start 10/07/16 at 19:30 Glucose (Glutose) 15 gm Q15M PRN PO DECREASED GLUCOSE; Start 10/07/16 at 19:30 Glucose (Glutose) 22.5 gm Q15M PRN PO DECREASED GLUCOSE; Start 10/07/16 at 19:30 Dextrose (D50w Syringe) 25 ml Q15M PRN IV DECREASED GLUCOSE; Start 10/07/16 at 19:30 Dextrose (D50w Syringe) 50 ml Q15M PRN IV DECREASED GLUCOSE; Start 10/07/16 at 19:30 Glucagon (Glucagen) 1 mg Q15M PRN IM DECREASED GLUCOSE; Start 10/07/16 at 19:30 Glucose (Glutose) 15 gm Q15M PRN BUCCAL DECREASED GLUCOSE; Start 10/07/16 at 19: 30 Clonazepam (Klonopin) 1 mg Q8H PRN PO ANXIETY; Start 10/08/16 at 06:30 Miscellaneous Information 1.5 mg DAILY PO ; Start 10/08/16 at 09:00; Status UNV Tiotropium [place] (Spiriva) 1 inh DAILY INH Last administered on 10/09/16 09: 19; Admin Dose 1 INH; Start 10/08/16 at 09:00 Diagnostic Test (Pha) (Accu-Chek) 1 ea 02 XX ; Start 10/09/16 at 02:00 Miscellaneous Information (*Order Clarification Bulletin) MEDICATION REQUIRES CLARIFICATI... Q8H XX ; Start 10/08/16 at 16:[address] chest results reviewed JESSIKA KRISHNA MD Oct 09, 2016 12:05
--- NOTE | 2016-10-09 15:05 | CONS ---
Date/Time of Note Date/Time of Note DATE: 10/09/16 TIME: 15:03 Consult Date/Type/Reason Admit Date/Time Oct 07, 2016 at 21:27 Initial Consult Date Type of Consultation: Pulmonary Subjective Patient feels okay this morning so she is less short of breath. Objective Vital Signs Date Time Temp Pulse Resp B/P Pulse Ox O2 Delivery O2 Flow Rate FiO2 10/09/16 13:23 76 16 96 Nasal Cannula 3.0 10/09/16 11:50 98.0 170/86 10/07/16 22:30 30 Intake and Output 10/08/16 10/08/16 10/09/16 14:59 22:59 06:59 Intake Total 1150 ml 600 ml 250 ml Balance 1150 ml 600 ml 250 ml Exam GENERAL: Elderly cachectic lady appears comfortable at rest no acute distress VITAL SIGNS: per chart NECK: Supple. No JVD or lymphadenopathy. CARDIAC EXAM: S1, S2. No added sounds or murmurs. CHEST: clear bilaterally, No added sounds, rales or wheezes ABDOMEN: Soft, nontender. No guarding or rebound. EXTREMITIES: No cyanosis, clubbing or edema. NEUROLOGIC: Generalized weakness. No focal deficits. Results/Medications Result Diagram: 10/09/1652 10/09/[address] chest Left hilar mass with compressive atelectasis loculated left apical pneumothorax Laboratory Tests Test 10/08/16 17:41 10/08/16 20:54 10/09/16 08:04 10/09/16 09:52 Bedside Glucose 113 143 133 White Blood Count 21.1 #H Red Blood Count 4.31 Hemoglobin 12.0 Hematocrit 36.9 L Mean Corpuscular Volume 85.6 Mean Corpuscular Hemoglobin 27.8 L Mean Corpuscular Hemoglobin Concent 32.5 Red Cell Distribution Width 12.2 Platelet Count 411 Mean Platelet Volume 8.9 Neutrophils % 97.0 H Lymphocytes % 2.0 L Monocytes % 1.0 Neutrophils # 20.5 H Lymphocytes # 0.4 L Monocytes # 0.2 L Platelet Estimate PLT APPEAR ADEQUATE Sodium Level 126 L Potassium Level 3.8 Chloride Level 86 L Carbon Dioxide Level 30 Anion Gap 14 Blood Urea Nitrogen 17 Creatinine 0.63 Glucose Level 154 Calcium Level 9.3 Random Cortisol 5.1 Test 10/09/16 12:50 Bedside Glucose 110 Medications Current Medications Ondansetron HCl (Zofran Inj) 4 mg Q6H PRN IV NAUSEA AND/OR VOMITING; Start 10/07 at 19:30 Acetaminophen (Tylenol Tab) 650 mg Q6H PRN PO PAIN LEVEL 1-3 OR FEVER; Start at 19:30 Acetaminophen/ Hydrocodone Bitart ([place] (5/325)) 1 tab Q6H PRN PO MODERATE PAIN LEVEL 4-6; Start 10/07/16 at 19:30 Morphine Sulfate (morphine) 2 mg Q4H PRN IV SEVERE PAIN LEVEL 7-10; Start at 19:30 Docusate Sodium (Colace) 100 mg Q12H PRN PO CONSTIPATION Last administered on 21:51; Admin Dose 100 MG; Start 10/07/16 at 19:30 Magnesium Hydroxide (Milk Of Mag) 30 ml DAILY PRN PO CONSTIPATION; Start at 19:30 Sodium Biphosphate/ Sodium Phosphate (Fleet Enema) 133 ml DAILY PRN [place] CONSTIPATION; Start 10/07/16 at 19:30 Pantoprazole (Protonix Iv) 40 mg DAILY@06 IV Last administered on 10/09/16 06: 02; Admin Dose 40 MG; Start 10/08/16 at 06:00 Heparin Sodium (Porcine) (Heparin (5000 Units/0.5 ml)) 5,000 unit Q12 SC Last administered on 10/09/16 09:22; Admin Dose 5,000 UNIT; Start 10/07/16 at 21:00 Lorazepam (Ativan) 0.5 mg Q6H PRN IV ANXIETY Last administered on 10/09/16 14: 13; Admin Dose 0.5 MG; Start 10/07/16 at 19:30 Nitroglycerin (Nitroglycerin (Sl Tab) 0.4 Mg) 1 tab Q5M PRN SL ANGINA; Start at 19:30 Salmeterol Xinafoate/ Fluticasone (Advair 250/50 Diskus) 1 inh BID INH Last administered on 10/09/16 09:19; Admin Dose 1 INH; Start 10/07/16 at 21:00 Miscellaneous Information 1 ea NOTE XX ; Start 10/07/16 at 19:30 Glucose (Glutose) 15 gm Q15M PRN PO DECREASED GLUCOSE; Start 10/07/16 at 19:30 Glucose (Glutose) 22.5 gm Q15M PRN PO DECREASED GLUCOSE; Start 10/07/16 at 19:30 Dextrose (D50w Syringe) 25 ml Q15M PRN IV DECREASED GLUCOSE; Start 10/07/16 at 19:30 Dextrose (D50w Syringe) 50 ml Q15M PRN IV DECREASED GLUCOSE; Start 10/07/16 at 19:30 Glucagon (Glucagen) 1 mg Q15M PRN IM DECREASED GLUCOSE; Start 10/07/16 at 19:30 Glucose (Glutose) 15 gm Q15M PRN BUCCAL DECREASED GLUCOSE; Start 10/07/16 at 19: 30 Clonazepam (Klonopin) 1 mg Q8H PRN PO ANXIETY; Start 10/08/16 at 06:30 Miscellaneous Information 1.5 mg DAILY PO ; Start 10/08/16 at 09:00; Status UNV Tiotropium [place] (Spiriva) 1 inh DAILY INH Last administered on 10/09/16t 09: 19; Admin Dose 1 INH; Start 10/08/16 at 09:00 Diagnostic Test (Pha) (Accu-Chek) 1 ea 02 XX ; Start 10/09/16 at 02:00 Miscellaneous Information (*Order Clarification Bulletin) MEDICATION REQUIRES CLARIFICATI... Q8H XX ; Start 10/08/16 at 16:00 Assessment/Plan Chief Complaint/Hosp Course Assessment 1. Left hilar mass and compressive atelectasis left upper lobe pneumothorax 2. COPD exacerbation 3. Acute on chronic hypoxemic respiratory failure 4. History of psychiatric disorder Plan 1. We will discuss CT findings with patient. 2. She will require either bronchoscopy and/or thoracic surgery evaluation for lung biopsy. 3. Continue treatment of current COPD exacerbation 4. Consider transfer to [facility] Problems: ARMEN KEEN MD, [facility] Oct 09, 2016 15:05
--- NOTE | 2016-10-09 17:05 | CONS ---
Date/Time of Note Date/Time of Note DATE: 10/09/16 TIME: 17:02 Assessment/Plan Assessment/Plan Additional Assessment/Plan Large mediastinal mass Patient has a long history of smoking Probable carcinoma She also has a hoarse voice with possible laryngeal nerve injury or involvement Patient has a 20% pneumothorax on the CAT scan with no pneumothorax on the chest x-ray Would need a CT-guided biopsy per radiology We will monitor pneumothorax Discussed with the patient and the sister Consultation Date/Type/Reason Admit Date/Time Oct 07, 2016 at 21:27 Date of Consultation: Oct 09, 2016 Reason for Consultation Pneumothorax Constitutional: no complaints Eyes: no complaints ENT: no complaints Respiratory: shortness of breath, No cough, No no complaints, No other, No pain, No pleuritic pain, No sputum, No wheezing Cardiovascular: no complaints, No chest pain, No edema, No lightheadedness, No orthopenea, No other, No palpitations, No paroxysmal nocturnal dyspnea Gastrointestinal: no complaints, No blood, No constipation, No decreased appetite, No diarrhea, No flatus, No nausea, No other, No pain, No passing stool, No vomiting Genitourinary: No bleeding, No discharge, No dysuria, No flank pain, No hematuria, No no complaints, No other Musculoskeletal: no complaints Skin: no complaints Neurologic: no complaints Past Surgical History Past Surgical Hx: no surgical history Family History Significant Family History: no pertinent family hx Social History Alcohol Use: none Smoking Status: Current every day smoker Drug Use: none Exam/Review of Systems Vital Signs Vitals Vital Signs Date Time Temp Pulse Resp B/P Pulse Ox O2 Delivery O2 Flow Rate FiO2 10/09/16 16:15 101 10/09/16 15:46 98.0 18 167/88 98 10/09/16 13:23 Nasal Cannula 3.0 10/07/16 22:30 30 Intake and Output 10/08/16 10/08/16 10/09/16 15:00 23:00 07:00 Intake Total 1150 ml 600 ml 250 ml Balance 1150 ml 600 ml 250 ml Exam ENMT: nl external ears & nose, nl lips & teeth, nl nasal mucosa & septum Neck: non-tender, supple Respiratory: clear to auscultation, normal air movement Cardiovascular: nl pulses, regular rate and rhythm Gastrointestinal: nl liver, spleen, non-tender, soft Results Result Diagram: 10/09/16 0952 10/09/16 0952 Results 24 hrs Laboratory Tests Test 10/08/16 17:41 10/08/16 20:54 10/09/16 08:04 10/09/16 09:52 Bedside Glucose 113 143 133 White Blood Count 21.1 #H Red Blood Count 4.31 Hemoglobin 12.0 Hematocrit 36.9 L Mean Corpuscular Volume 85.6 Mean Corpuscular Hemoglobin 27.8 L Mean Corpuscular Hemoglobin Concent 32.5 Red Cell Distribution Width 12.2 Platelet Count 411 Mean Platelet Volume 8.9 Neutrophils % 97.0 H Lymphocytes % 2.0 L Monocytes % 1.0 Neutrophils # 20.5 H Lymphocytes # 0.4 L Monocytes # 0.2 L Platelet Estimate PLT APPEAR ADEQUATE Sodium Level 126 L Potassium Level 3.8 Chloride Level 86 L Carbon Dioxide Level 30 Anion Gap 14 Blood Urea Nitrogen 17 Creatinine 0.63 Glucose Level 154 Calcium Level 9.3 Random Cortisol 5.1 Test 10/09/16 12:50 10/09/16 16:55 Bedside Glucose 110 80 Medications Medications Current Medications Ondansetron HCl (Zofran Inj) 4 mg Q6H PRN IV NAUSEA AND/OR VOMITING; Start 10/07 at 19:30 Acetaminophen (Tylenol Tab) 650 mg Q6H PRN PO PAIN LEVEL 1-3 OR FEVER; Start at 19:30 Acetaminophen/ Hydrocodone Bitart ([place] (5/325)) 1 tab Q6H PRN PO MODERATE PAIN LEVEL 4-6; Start 10/07/16 at 19:30 Morphine Sulfate (morphine) 2 mg Q4H PRN IV SEVERE PAIN LEVEL 7-10; Start at 19:30 Docusate Sodium (Colace) 100 mg Q12H PRN PO CONSTIPATION Last administered on 21:51; Admin Dose 100 MG; Start 10/07/16 at 19:30 Magnesium Hydroxide (Milk Of Mag) 30 ml DAILY PRN PO CONSTIPATION; Start at 19:30 Sodium Biphosphate/ Sodium Phosphate (Fleet Enema) 133 ml DAILY PRN [place] CONSTIPATION; Start 10/07/16 at 19:30 Heparin Sodium (Porcine) (Heparin (5000 Units/0.5 ml)) 5,000 unit Q12 SC Last administered on 10/09/16 09:22; Admin Dose 5,000 UNIT; Start 10/07/16 at 21:00 Lorazepam (Ativan) 0.5 mg Q6H PRN IV ANXIETY Last administered on 10/09/16 14: 13; Admin Dose 0.5 MG; Start 10/07/16 at 19:30 Nitroglycerin (Nitroglycerin (Sl Tab) 0.4 Mg) 1 tab Q5M PRN SL ANGINA; Start at 19:30 Salmeterol Xinafoate/ Fluticasone (Advair 250/50 Diskus) 1 inh BID INH Last administered on 10/09/16 09:19; Admin Dose 1 INH; Start 10/07/16 at 21:00 Miscellaneous Information 1 ea NOTE XX ; Start 10/07/16 at 19:30 Glucose (Glutose) 15 gm Q15M PRN PO DECREASED GLUCOSE; Start 10/07/16 at 19:30 Glucose (Glutose) 22.5 gm Q15M PRN PO DECREASED GLUCOSE; Start 10/07/16 at 19:30 Dextrose (D50w Syringe) 25 ml Q15M PRN IV DECREASED GLUCOSE; Start 10/07/16 at 19:30 Dextrose (D50w Syringe) 50 ml Q15M PRN IV DECREASED GLUCOSE; Start 10/07/16 at 19:30 Glucagon (Glucagen) 1 mg Q15M PRN IM DECREASED GLUCOSE; Start 10/07/16 at 19:30 Glucose (Glutose) 15 gm Q15M PRN BUCCAL DECREASED GLUCOSE; Start 10/07/16 at 19: 30 Clonazepam (Klonopin) 1 mg Q8H PRN PO ANXIETY; Start 10/08/16 at 06:30 Miscellaneous Information 1.5 mg DAILY PO ; Start 10/08/16 at 09:00; Status UNV Tiotropium [place] (Spiriva) 1 inh DAILY INH Last administered on 10/09/16 09: 19; Admin Dose 1 INH; Start 10/08/16 at 09:00 Diagnostic Test (Pha) (Accu-Chek) 1 ea 02 XX ; Start 10/09/16 at 02:00 Miscellaneous Information (*Order Clarification Bulletin) MEDICATION REQUIRES CLARIFICATI... Q8H XX ; Start 10/08/16 at 16:00 PAVEL WELDON MD Oct 09, 2016 17:05
[2016-10-09] MEDS: clonAZEPAM 0.5 MG TAB PO PRN (18:31)
[2016-10-09] MEDS: LORAZEPAM 0.5 MG TAB PO PRN (22:46)
[2016-10-10] VITALS (11 sets, daily range): BP systolic 124–167; BP diastolic 73–82; PULSE 88–100; RESP 17–19
[2016-10-10] MEDS: ALBUTEROL/IPRATROPIUM (NEB) 3 ML AMP HHN SCH ×6 (01:00→20:16)
[2016-10-10] MEDS: ACCU-CHEK XX SCH (02:00)
[2016-10-10] MEDS: ALBUTEROL/IPRATROPIUM (NEB) 3 ML AMP NEB PRN (02:04)
[2016-10-10] MEDS: clonAZEPAM 0.5 MG TAB PO PRN ×2 (02:06→21:03)
[2016-10-10] MEDS: INSULIN ASPART [NOVOLOG] 3 ML PEN SC SCH ×4 (08:54→21:00)
[2016-10-10] MEDS: HEPARIN 5,000 UNIT/0.5 ML VIAL SC SCH ×2 (08:55→21:00)
[2016-10-10] MEDS: TIOTROPIUM 18 MCG CAPSULE INHA DEV INH SCH (08:56)
[2016-10-10] MEDS: MAGNESIUM HYDROXIDE 30ML CUP PO PRN (08:57)
[2016-10-10] MEDS: SALMETEROL/FLUTICASONE 250/50 INHA INH SCH ×2 (08:57→21:08)
[2016-10-10 10:32] LABS: ADD SCAN DIFF NO
--- NOTE | 2016-10-10 10:36 | PN ---
Date/Time of Note Date/Time of Note DATE: 10/10/16 TIME: 10:33 Assessment/Plan VTE Prophylaxis VTE Prophylaxis Intervention: SCD's Lines/Catheters IV Catheter Type (from Nrsg): [facility] Assessment/Plan Assessment/Plan 61 yo F with pmhx schizoaffective d/o, extensive tobacco hx, lung mass diagnosed ~1 month ago at OSH ([facility]) presented with SOB. Found to have large L lung mass clinically consistent with malignancy, imaging also revealed L sided partial PTX as well as bone mets. #lung mass: pt refusing biopsy. 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 #leukocytosis: malignancy v steroids. stopped #schizoaffective: cont in[facility] Hospice referral (dw patient) Discharge planning With patient's permission and per her request, I called patient's outpatient social science instructor, Aviva at [facility] ([facility] program ([phone]) and updated her on the situation. Also gave her phone # for [facility] at [facility] who met with patient yesterday Subjective 24 Hr Interval Summary Free Text/Dictation Pt states that she feels anxious this AM. Still does not want a biopsy/any work up for her lung mass. Again dw patient that biopsy procedure would provide information about her options but patient states she does not want any chemo or radiation. Exam/Review of Systems Vital Signs Vitals Vital Signs Date Time Temp Pulse Resp B/P Pulse Ox O2 Delivery O2 Flow Rate FiO2 10/10/16 08:12 98.1 84 18 133/82 95 10/10/16 02:04 Nasal Cannula 3.0 10/09/16 20:49 21 Intake and Output 10/09/16 10/09/16 10/10/16 15:00 23:00 07:00 Intake Total 150 ml 700 ml 200 ml Balance 150 ml 700 ml 200 ml Exam anxious, sitting up in bed no mrg abd soft no rashes moves exts freely Results Result Diagram: 10/09/16 0952 10/09/16 0952 Results 24 hrs Laboratory Tests Test 10/09/16 12:50 10/09/16 16:55 10/09/16 21:06 10/10/16 08:05 Bedside Glucose 110 80 93 164 Medications Medications Current Medications Ondansetron HCl (Zofran Inj) 4 mg Q6H PRN IV NAUSEA AND/OR VOMITING; Start 10/07 at 19:30 Acetaminophen (Tylenol Tab) 650 mg Q6H PRN PO PAIN LEVEL 1-3 OR FEVER; Start at 19:30 Acetaminophen/ Hydrocodone Bitart ([place] (5/325)) 1 tab Q6H PRN PO MODERATE PAIN LEVEL 4-6; Start 10/07/16 at 19:30 Morphine Sulfate (morphine) 2 mg Q4H PRN IV SEVERE PAIN LEVEL 7-10 Last administered on 10/10/16 02:00; Admin Dose 2 MG; Start 10/07/16 at 19:30 Docusate Sodium (Colace) 100 mg Q12H PRN PO CONSTIPATION Last administered on 21:51; Admin Dose 100 MG; Start 10/07/16 at 19:30 Magnesium Hydroxide (Milk Of Mag) 30 ml DAILY PRN PO CONSTIPATION Last administered on 10/10/16 08:57; Admin Dose 30 ML; Start 10/07/16 at 19:30 Sodium Biphosphate/ Sodium Phosphate (Fleet Enema) 133 ml DAILY PRN [place] CONSTIPATION; Start 10/07/16 at 19:30 Heparin Sodium (Porcine) (Heparin (5000 Units/0.5 ml)) 5,000 unit Q12 SC Last administered on 10/10/16 08:55; Admin Dose 5,000 UNIT; Start 10/07/16 at 21:00 Nitroglycerin (Nitroglycerin (Sl Tab) 0.4 Mg) 1 tab Q5M PRN SL ANGINA; Start at 19:30 Salmeterol Xinafoate/ Fluticasone (Advair 250/50 Diskus) 1 inh BID INH Last administered on 10/10/16 08:57; Admin Dose 1 INH; Start 10/07/16 at 21:00 Miscellaneous Information 1 ea NOTE XX ; Start 10/07/16 at 19:30 Glucose (Glutose) 15 gm Q15M PRN PO DECREASED GLUCOSE; Start 10/07/16 at 19:30 Glucose (Glutose) 22.5 gm Q15M PRN PO DECREASED GLUCOSE; Start 10/07/16 at 19:30 Dextrose (D50w Syringe) 25 ml Q15M PRN IV DECREASED GLUCOSE; Start 10/07/16 at 19:30 Dextrose (D50w Syringe) 50 ml Q15M PRN IV DECREASED GLUCOSE; Start 10/07/16 at 19:30 Glucagon (Glucagen) 1 mg Q15M PRN IM DECREASED GLUCOSE; Start 10/07/16 at 19:30 Glucose (Glutose) 15 gm Q15M PRN BUCCAL DECREASED GLUCOSE; Start 10/07/16 at 19: 30 Clonazepam (Klonopin) 1 mg Q8H PRN PO ANXIETY Last administered on 10/10/16 02 :06; Admin Dose 1 MG; Start 10/08/16 at 06:30 Miscellaneous Information 1.5 mg DAILY PO ; Start 10/08/16 at 09:00; Status UNV Tiotropium [place] (Spiriva) 1 inh DAILY INH Last administered on 10/10/16 08: 56; Admin Dose 1 INH; Start 10/08/16 at 09:00 Diagnostic Test (Pha) (Accu-Chek) 1 ea 02 XX ; Start 10/09/16 at 02:00 Miscellaneous Information (*Order Clarification Bulletin) MEDICATION REQUIRES CLARIFICATI... Q8H XX Last administered on 10/10/16 00:00; Admin Dose 1 EA; Start 10/08/16 at 16:00 Lorazepam (Ativan) 0.5 mg Q6H PRN PO ANXIETY Last administered on 10/09/16 22: 46; Admin Dose 0.5 MG; Start 10/09/16 at 21:00 JESSIKA KRISHNA MD Oct 10, 2016 10:36
[2016-10-10 10:39] LABS: ABNORMAL IP MESSAGE 1; BASOPHILS % 0.1 % (0.0-2.0); EOSINOPHILS % 0.1 % (0.0-7.0); HEMATOCRIT 41.5 % (37.0-47.0); HEMOGLOBIN 13.5 g/dl (12.0-16.0); LYMPHOCYTES # 2.3 10^3/ul (0.8-2.9); LYMPHOCYTES % 16.6 % (15.0-51.0); MEAN CORPUSCULAR HEMOGLOBIN 27.7 pg (29.0-33.0); MEAN CORPUSCULAR HGB CONC 32.5 g/dl (32.0-37.0); MEAN PLATELET VOLUME 8.9 fl (7.4-10.4); MONOCYTE # 1.8 10^3/ul (0.3-0.9); MONOCYTES % 12.5 % (0.0-11.0); NEUTROPHIL # 9.9 10^3/ul (1.6-7.5); NEUTROPHILS % 70.2 % (39.0-77.0); PLATELET COUNT 510 10^3/UL (140-415); RED BLOOD COUNT 4.88 10^6/ul (4.20-5.40); RED CELL DISTRIBUTION WIDTH 12.2 % (11.5-14.5); WHITE BLOOD COUNT 14.1 10^3/ul (4.8-10.8)
[2016-10-10 10:59] LABS: CALCIUM 10.2 mg/dl (8.4-10.2); CREATININE 0.7 mg/dl (0.44-1.00); POTASSIUM 3.2 mmol/L (3.5-5.1)
--- NOTE | 2016-10-10 12:06 | CONS ---
Date/Time of Note Date/Time of Note DATE: 10/10/16 TIME: 12:04 Consult Date/Type/Reason Admit Date/Time Oct 07, 2016 at 21:27 Type of Consultation: Pulmonary Subjective Patient awake alert oriented this morning, tearful. Denies shortness of breath. Objective Vital Signs Date Time Temp Pulse Resp B/P Pulse Ox O2 Delivery O2 Flow Rate FiO2 10/10/16 12:00 88 10/10/16 11:47 97.5 17 127/75 95 10/10/16 11:10 Nasal Cannula 3.0 10/09/16 20:49 21 Intake and Output 10/09/16 10/09/16 10/10/16 14:59 22:59 06:59 Intake Total 150 ml 700 ml 200 ml Balance 150 ml 700 ml 200 ml Exam GENERAL: Elderly cachectic lady appears comfortable at rest no acute distress VITAL SIGNS: per chart NECK: Supple. No JVD or lymphadenopathy. CARDIAC EXAM: S1, S2. No added sounds or murmurs. CHEST: clear bilaterally, No added sounds, rales or wheezes ABDOMEN: Soft, nontender. No guarding or rebound. EXTREMITIES: No cyanosis, clubbing or edema. NEUROLOGIC: Generalized weakness. No focal deficits. Results/Medications Result Diagram: 10/10/16 0942 10/10/16 0942 Results 24 hrs Laboratory Tests Test 10/09/16 12:50 10/09/16 16:55 10/09/16 21:06 10/10/16 08:05 Bedside Glucose 110 80 93 164 Test 10/10/16 09:42 White Blood Count 14.1 #H Red Blood Count 4.88 Hemoglobin 13.5 Hematocrit 41.5 Mean Corpuscular Volume 85.0 Mean Corpuscular Hemoglobin 27.7 L Mean Corpuscular Hemoglobin Concent 32.5 Red Cell Distribution Width 12.2 Platelet Count 510 #H Mean Platelet Volume 8.9 Neutrophils % 70.2 Lymphocytes % 16.6 Monocytes % 12.5 H Eosinophils % 0.1 Basophils % 0.1 Nucleated Red Blood Cells % 0.0 Neutrophils # 9.9 H Lymphocytes # 2.3 Monocytes # 1.8 H Eosinophils # 0.0 Basophils # 0.0 Nucleated Red Blood Cells # 0.0 Sodium Level 124 L Potassium Level 3.2 L Chloride Level 81 L Carbon Dioxide Level 36 H Anion Gap 10 Blood Urea Nitrogen 17 Creatinine 0.70 Glucose Level 115 Calcium Level 10.2 Medications Current Medications Ondansetron HCl (Zofran Inj) 4 mg Q6H PRN IV NAUSEA AND/OR VOMITING; Start 10/07 at 19:30 Acetaminophen (Tylenol Tab) 650 mg Q6H PRN PO PAIN LEVEL 1-3 OR FEVER; Start at 19:30 Acetaminophen/ Hydrocodone Bitart ([place] (5/325)) 1 tab Q6H PRN PO MODERATE PAIN LEVEL 4-6; Start 10/07/16 at 19:30 Morphine Sulfate (morphine) 2 mg Q4H PRN IV SEVERE PAIN LEVEL 7-10 Last administered on 10/10/16 02:00; Admin Dose 2 MG; Start 10/07/16 at 19:30 Docusate Sodium (Colace) 100 mg Q12H PRN PO CONSTIPATION Last administered on 21:51; Admin Dose 100 MG; Start 10/07/16 at 19:30 Magnesium Hydroxide (Milk Of Mag) 30 ml DAILY PRN PO CONSTIPATION Last administered on 10/10/16 08:57; Admin Dose 30 ML; Start 10/07/16 at 19:30 Sodium Biphosphate/ Sodium Phosphate (Fleet Enema) 133 ml DAILY PRN [place] CONSTIPATION; Start 10/07/16 at 19:30 Heparin Sodium (Porcine) (Heparin (5000 Units/0.5 ml)) 5,000 unit Q12 SC Last administered on 10/10/16 08:55; Admin Dose 5,000 UNIT; Start 10/07/16 at 21:00 Nitroglycerin (Nitroglycerin (Sl Tab) 0.4 Mg) 1 tab Q5M PRN [place] ANGINA; Start at 19:30 Salmeterol Xinafoate/ Fluticasone (Advair 250/50 Diskus) 1 inh BID INH Last administered on 10/10/16 08:57; Admin Dose 1 INH; Start 10/07/16 at 21:00 Miscellaneous Information 1 ea NOTE XX ; Start 10/07/16 at 19:30 Glucose (Glutose) 15 gm Q15M PRN PO DECREASED GLUCOSE; Start 10/07/16 at 19:30 Glucose (Glutose) 22.5 gm Q15M PRN PO DECREASED GLUCOSE; Start 7/8/17 at 19:30 Dextrose (D50w Syringe) 25 ml Q15M PRN IV DECREASED GLUCOSE; Start 10/07/16 at 19:30 Dextrose (D50w Syringe) 50 ml Q15M PRN IV DECREASED GLUCOSE; Start 10/07/16 at 19:30 Glucagon (Glucagen) 1 mg Q15M PRN IM DECREASED GLUCOSE; Start 10/07/16 at 19:30 Glucose (Glutose) 15 gm Q15M PRN BUCCAL DECREASED GLUCOSE; Start 10/07/16 at 19: 30 Clonazepam (Klonopin) 1 mg Q8H PRN PO ANXIETY Last administered on 10/10/16 02 :06; Admin Dose 1 MG; Start 10/08/16 at 06:30 Miscellaneous Information 1.5 mg DAILY PO ; Start 10/08/16 at 09:00; Status UNV Tiotropium [place] (Spiriva) 1 inh DAILY INH Last administered on 10/10/16 08: 56; Admin Dose 1 INH; Start 10/08/16 at 09:00 Diagnostic Test (Pha) (Accu-Chek) 1 ea 02 XX ; Start 10/09/16 at 02:00 Miscellaneous Information (*Order Clarification Bulletin) MEDICATION REQUIRES CLARIFICATI... Q8H XX Last administered on 10/10/16 00:00; Admin Dose 1 EA; Start 10/08/16 at 16:00 Lorazepam (Ativan) 0.5 mg Q6H PRN PO ANXIETY Last administered on 10/09/16 22: 46; Admin Dose 0.5 MG; Start 10/09/16 at 21:00 Assessment/Plan Chief Complaint/Hosp Course Assessment 1. Left hilar mass and compressive atelectasis left upper lobe pneumothorax: Patient well aware of this diagnosis. Understands that she likely has a lung cancer. She has declined workup. Patient declined further workup for her lung cancer. 2. COPD exacerbation 3. Acute on chronic hypoxemic respiratory failure 4. History of psychiatric disorder currently awake alert oriented understanding of the diagnosis and prognosis. Plan findings discussed with patient 1. Findings discussed with patient. 2. Agree with palliative care approach 3. Continue treatment of current COPD exacerbation 4. Consider transfer to [facility] Discharge planning. Problems: ARMEN KEEN MD, [facility] Oct 10, 2016 12:06
--- NOTE | 2016-10-10 12:11 | PN ---
Date/Time of Note Date/Time of Note DATE: 10/10/16 TIME: 12:06 Assessment/Plan Lines/Catheters IV Catheter Type (from Nrs): [facility] Assessment/Plan Chief Complaint/Hosp Course Large mediastinal mass Patient has a long history of smoking Probable carcinoma She also has a hoarse voice with possible laryngeal nerve injury or involvement Patient has a 20% pneumothorax on the CAT scan with no pneumothorax on the chest x-ray Would need a CT-guided biopsy per radiology We repeat chest x-ray Patient does not want any further biopsies at this time Discussed with the patient and the sister Problems: Subjective 24 Hr Interval Summary Constitutional: improved Pain Control: mild Exam/Review of Systems Vital Signs Vitals Vital Signs Date Time Temp Pulse Resp B/P Pulse Ox O2 Delivery O2 Flow Rate FiO2 10/10/16 12:00 88 10/10/16 11:47 97.5 17 127/75 95 10/10/16 11:10 Nasal Cannula 3.0 10/09/16 20:49 21 Intake and Output 10/09/16 10/09/16 10/10/16 15:00 23:00 07:00 Intake Total 150 ml 700 ml 200 ml Balance 150 ml 700 ml 200 ml Exam Neck: non-tender, supple Respiratory: clear to auscultation, normal air movement Cardiovascular: nl pulses, regular rate and rhythm Gastrointestinal: nl liver, spleen, non-tender, soft Results Result Diagram: 10/10/16 0942 10/10/16 0942 PAVEL WELDON MD Oct 10, 2016 12:10
--- NOTE | 2016-10-10 15:08 | RADRPT ---
PROCEDURE: XR Chest. CLINICAL INDICATION: Shortness of breath. Pneumothorax. TECHNIQUE: Single frontal view. COMPARISON: 10/07/2016. FINDINGS: The right lung is clear. There is a mediastinal and left upper lobe mass as seen on prior CT scan a nd chest x-ray. Volume loss on the left side is worse than seen previously. The heart size is normal. There is no pleural effusion. There is no right pneumothorax. There is a left pneumothorax measuring approximately 20%, larger th an seen previously. IMPRESSION: 1. Larger left pneumothorax with volume loss on the left. 2. No other change from 10/07/2016. RPTAT: QQ .Abhinav Gonsales MD, MD Date Time Electronically viewed and signed by .Abhinav Gonsales MD, MD on 10/10/2016 15:08 .R/
[2016-10-10] MEDS: HYDROCODONE/APAP (5/325) TAB PO PRN (19:59)
[2016-10-11] VITALS (8 sets, daily range): BP systolic 97–133; BP diastolic 53–75; PULSE 85–90; RESP 18–21
[2016-10-11] MEDS: MAGNESIUM HYDROXIDE 30ML CUP PO PRN (00:44)
[2016-10-11] MEDS: clonAZEPAM 0.5 MG TAB PO PRN ×3 (00:44→20:00)
[2016-10-11] MEDS: ALBUTEROL/IPRATROPIUM (NEB) 3 ML AMP HHN SCH ×6 (00:58→20:07)
[2016-10-11] MEDS: ACCU-CHEK XX SCH (02:00)
[2016-10-11] MEDS: INSULIN ASPART [NOVOLOG] 3 ML PEN SC SCH ×4 (07:55→20:05)
[2016-10-11] MEDS: SALMETEROL/FLUTICASONE 250/50 INHA INH SCH ×2 (08:20→20:04)
[2016-10-11] MEDS: TIOTROPIUM 18 MCG CAPSULE INHA DEV INH SCH (08:21)
[2016-10-11] MEDS: HEPARIN 5,000 UNIT/0.5 ML VIAL SC SCH ×2 (08:47→20:03)
[2016-10-11] MEDS: HYDROCODONE/APAP (5/325) TAB PO PRN ×3 (08:51→22:54)
[2016-10-11 12:40] LABS: ADD SCAN DIFF NO
[2016-10-11 12:44] LABS: BASOPHILS % 0.2 % (0.0-2.0); EOSINOPHILS % 0.3 % (0.0-7.0); HEMATOCRIT 41.1 % (37.0-47.0); HEMOGLOBIN 13.6 g/dl (12.0-16.0); LYMPHOCYTES # 1.5 10^3/ul (0.8-2.9); LYMPHOCYTES % 12.3 % (15.0-51.0); MEAN CORPUSCULAR HEMOGLOBIN 28.3 pg (29.0-33.0); MEAN CORPUSCULAR HGB CONC 33.1 g/dl (32.0-37.0); MEAN CORPUSCULAR VOLUME 85.6 fl (82.0-101.0); MEAN PLATELET VOLUME 8.8 fl (7.4-10.4); MONOCYTE # 1.4 10^3/ul (0.3-0.9); NEUTROPHIL # 9.3 10^3/ul (1.6-7.5); NEUTROPHILS % 75.7 % (39.0-77.0); PLATELET COUNT 483 10^3/UL (140-415); WHITE BLOOD COUNT 12.3 10^3/ul (4.8-10.8)
[2016-10-11 13:06] LABS: CALCIUM 9.3 mg/dl (8.4-10.2); CREATININE 0.77 mg/dl (0.44-1.00); POTASSIUM 3.9 mmol/L (3.5-5.1)
--- NOTE | 2016-10-11 13:45 | PN ---
Date/Time of Note Date/Time of Note DATE: 10/11/16 TIME: 13:45 Assessment/Plan Lines/Catheters IV Catheter Type (from Nrs): [facility] Assessment/Plan Chief Complaint/Hosp Course Large mediastinal mass Patient has a long history of smoking Probable carcinoma She also has a hoarse voice with possible laryngeal nerve injury or involvement Patient has a 20% pneumothorax on the CAT scan with no pneumothorax on the chest x-ray Would need a CT-guided biopsy per radiology We repeat chest x-ray Patient does not want any further biopsies at this time Discussed with the patient and the sister Problems: Subjective 24 Hr Interval Summary Constitutional: improved Pain Control: mild Exam/Review of Systems Vital Signs Vitals Vital Signs Date Time Temp Pulse Resp B/P Pulse Ox O2 Delivery O2 Flow Rate FiO2 10/11/16 11:10 98.4 97 19 97/53 100 10/11/16 08:59 Nasal Cannula 2.0 10/09/16 20:49 21 Intake and Output 10/10/16 10/10/16 10/11/16 15:00 23:00 07:00 Intake Total 950 ml 300 ml Balance 950 ml 300 ml Exam ENMT: mucosa pink and moist, nl external ears & nose, nl lips & teeth, nl nasal mucosa & septum Neck: non-tender, supple Respiratory: clear to auscultation, normal air movement, No congested cough, No crackles/rales, No diminished breath sounds, No intercostal retraction, No labored breathing, No other, No respirations, No tactile fremitus, No wheezing Cardiovascular: nl pulses, regular rate and rhythm Gastrointestinal: nl liver, spleen, non-tender, soft Results Result Diagram: 10/11/16 1205 10/11/16 1205 PAVEL WELDON MD Oct 11, 2016 13:45
--- NOTE | 2016-10-11 15:06 | PN ---
Date/Time of Note Date/Time of Note DATE: 10/11/16 TIME: 15:06 Assessment/Plan VTE Prophylaxis VTE Prophylaxis Intervention: SCD's Lines/Catheters IV Catheter Type (from Nrsg): Saline Lock Assessment/Plan Assessment/Plan 61 yo F with pmhx schizoaffective d/o, extensive tobacco hx, lung mass diagnosed ~1 month ago at OSH ([facility]) presented with SOB. Found to have large L lung mass clinically consistent with malignancy, imaging also revealed L sided partial PTX as well as bone mets. #lung mass: pt refusing biopsy. 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 #leukocytosis: malignancy v steroids. stopped #schizoaffective: cont invega Dispo: Pt has signed on with [facility]. Agency currently working on SNF placement for patient. Spoke to Ruben VILLAGRAN x 2 today, agency is aggressively trying to place patient. Will f/u with agency tomorrow. Subjective 24 Hr Interval Summary Free Text/Dictation Pt resting this AM Exam/Review of Systems Vital Signs Vitals Vital Signs Date Time Temp Pulse Resp B/P Pulse Ox O2 Delivery O2 Flow Rate FiO2 10/11/16 11:10 98.4 97 19 97/53 100 10/11/16 08:59 Nasal Cannula 2.0 10/09/16 20:49 21 Intake and Output 10/10/16 10/10/16 10/11/16 15:00 23:00 07:00 Intake Total 950 ml 300 ml Balance 950 ml 300 ml Exam laying on side resp nonlabored no gross abd distension no rashes no le edema Results Result Diagram: 10/11/16 1205 10/11/16 1205 Results 24 hrs Laboratory Tests Test 10/10/16 17:27 10/10/16 21:27 10/11/16 06:00 10/11/16 08:19 Bedside Glucose 81 95 122 Urine Osmolality 213 L Urine Random Sodium 15 L Test 10/11/16 12:05 10/11/16 12:23 White Blood Count 12.3 H Red Blood Count 4.80 Hemoglobin 13.6 Hematocrit 41.1 Mean Corpuscular Volume 85.6 Mean Corpuscular Hemoglobin 28.3 L Mean Corpuscular Hemoglobin Concent 33.1 Red Cell Distribution Width 12.0 Platelet Count 483 H Mean Platelet Volume 8.8 Neutrophils % 75.7 Lymphocytes % 12.3 L Monocytes % 11.0 Eosinophils % 0.3 Basophils % 0.2 Nucleated Red Blood Cells % 0.0 Neutrophils # 9.3 H Lymphocytes # 1.5 Monocytes # 1.4 H Eosinophils # 0.0 Basophils # 0.0 Nucleated Red Blood Cells # 0.0 Sodium Level 128 L Potassium Level 3.9 Chloride Level 87 L Carbon Dioxide Level 35 H Anion Gap 10 Blood Urea Nitrogen 22 H Creatinine 0.77 Glucose Level 125 Calcium Level 9.3 Bedside Glucose 141 Medications Medications Current Medications Ondansetron HCl (Zofran Inj) 4 mg Q6H PRN IV NAUSEA AND/OR VOMITING; Start 10/07 at 19:30 Acetaminophen (Tylenol Tab) 650 mg Q6H PRN PO PAIN LEVEL 1-3 OR FEVER Last administered on 10/11/16 00:53; Admin Dose 650 MG; Start 10/07/16 at 19:30 Acetaminophen/ Hydrocodone Bitart ([place] (5/325)) 1 tab Q6H PRN PO MODERATE PAIN LEVEL 4-6 Last administered on 10/11/16 08:51; Admin Dose 1 TAB; Start 10/07/16 at 19:30 Morphine Sulfate (morphine) 2 mg Q4H PRN IV SEVERE PAIN LEVEL 7-10 Last administered on 10/10/16 02:00; Admin Dose 2 MG; Start 10/07/16 at 19:30 Docusate Sodium (Colace) 100 mg Q12H PRN PO CONSTIPATION Last administered on 21:51; Admin Dose 100 MG; Start 10/07/16 at 19:30 Magnesium Hydroxide (Milk Of Mag) 30 ml DAILY PRN PO CONSTIPATION Last administered on 10/11/16 00:44; Admin Dose 30 ML; Start 10/07/16 at 19:30 Sodium Biphosphate/ Sodium Phosphate (Fleet Enema) 133 ml DAILY PRN [place] CONSTIPATION; Start 10/07/16 at 19:30 Heparin Sodium (Porcine) (Heparin (5000 Units/0.5 ml)) 5,000 unit Q12 SC Last administered on 10/11/16 08:47; Admin Dose 5,000 UNIT; Start 10/07/16 at 21:00 Nitroglycerin (Nitroglycerin (Sl Tab) 0.4 Mg) 1 tab Q5M PRN SL ANGINA; Start at 19:30 Salmeterol Xinafoate/ Fluticasone (Advair 250/50 Diskus) 1 inh BID INH Last administered on 10/11/16 08:20; Admin Dose 1 INH; Start 10/07/16 at 21:00 Miscellaneous Information 1 ea NOTE XX ; Start 10/07/16 at 19:30 Glucose (Glutose) 15 gm Q15M PRN PO DECREASED GLUCOSE; Start 10/07/16 at 19:30 Glucose (Glutose) 22.5 gm Q15M PRN PO DECREASED GLUCOSE; Start 10/07/16 at 19:30 Dextrose (D50w Syringe) 25 ml Q15M PRN IV DECREASED GLUCOSE; Start 10/07/16 at 19:30 Dextrose (D50w Syringe) 50 ml Q15M PRN IV DECREASED GLUCOSE; Start 10/07/16 at 19:30 Glucagon (Glucagen) 1 mg Q15M PRN IM DECREASED GLUCOSE; Start 10/07/16 at 19:30 Glucose (Glutose) 15 gm Q15M PRN BUCCAL DECREASED GLUCOSE; Start 10/07/16 at 19: 30 Clonazepam (Klonopin) 1 mg Q8H PRN PO ANXIETY Last administered on 10/11/16 06 :07; Admin Dose 1 MG; Start 10/08/16 at 06:30 Miscellaneous Information 1.5 mg DAILY PO ; Start 10/08/16 at 09:00; Status UNV Tiotropium [place] (Spiriva) 1 inh DAILY INH Last administered on 10/11/16 08: 21; Admin Dose 1 INH; Start 10/08/16 at 09:00 Diagnostic Test (Pha) (Accu-Chek) 1 ea 02 XX ; Start 10/09/16 at 02:00 Miscellaneous Information (*Order Clarification Bulletin) MEDICATION REQUIRES CLARIFICATI... Q8H XX Last administered on 10/10/16 00:00; Admin Dose 1 EA; Start 10/08/16 at 16:00 Lorazepam (Ativan) 0.5 mg Q6H PRN PO ANXIETY Last administered on 7/10/17at 22: 46; Admin Dose 0.5 MG; Start 10/09/16 at 21:00 JESSIKA KRISHNA MD Oct 11, 2016 15:06
[2016-10-11] MEDS ORDERED: ZOLPIDEM 5 MG TAB PO PRN (23:30)
[2016-10-12] MEDS: ALBUTEROL/IPRATROPIUM (NEB) 3 ML AMP HHN SCH ×5 (00:38→17:00)
[2016-10-12] MEDS: ACCU-CHEK XX SCH (02:00)
[2016-10-12] MEDS: HYDROCODONE/APAP (5/325) TAB PO PRN ×3 (04:09→18:35)
[2016-10-12] MEDS: clonAZEPAM 0.5 MG TAB PO PRN ×3 (05:59→20:29)
[2016-10-12] MEDS: INSULIN ASPART [NOVOLOG] 3 ML PEN SC SCH ×2 (07:50→11:40)
[2016-10-12 08:12] VITALS: BP 126/73; RESP 20
[2016-10-12 08:33] LABS: ADD SCAN DIFF NO
[2016-10-12 08:43] LABS: BASOPHILS % 0.2 % (0.0-2.0); EOSINOPHILS # 0.1 10^3/ul (0.0-0.5); EOSINOPHILS % 0.9 % (0.0-7.0); HEMATOCRIT 37.6 % (37.0-47.0); HEMOGLOBIN 12.1 g/dl (12.0-16.0); LYMPHOCYTES # 1.4 10^3/ul (0.8-2.9); LYMPHOCYTES % 13.4 % (15.0-51.0); MEAN CORPUSCULAR HEMOGLOBIN 27.4 pg (29.0-33.0); MEAN CORPUSCULAR HGB CONC 32.2 g/dl (32.0-37.0); MEAN CORPUSCULAR VOLUME 85.1 fl (82.0-101.0); MEAN PLATELET VOLUME 8.8 fl (7.4-10.4); MONOCYTES % 9.4 % (0.0-11.0); NEUTROPHIL # 7.9 10^3/ul (1.6-7.5); NEUTROPHILS % 75.7 % (39.0-77.0); PLATELET COUNT 387 10^3/UL (140-415); RED BLOOD COUNT 4.42 10^6/ul (4.20-5.40); WHITE BLOOD COUNT 10.5 10^3/ul (4.8-10.8)
[2016-10-12 09:22] LABS: CALCIUM 9.4 mg/dl (8.4-10.2); CREATININE 0.66 mg/dl (0.44-1.00); POTASSIUM 3.5 mmol/L (3.5-5.1)
[2016-10-12] MEDS: TIOTROPIUM 18 MCG CAPSULE INHA DEV INH SCH (09:43)
[2016-10-12] MEDS: SALMETEROL/FLUTICASONE 250/50 INHA INH SCH ×2 (09:43→20:38)
[2016-10-12] MEDS: HEPARIN 5,000 UNIT/0.5 ML VIAL SC SCH (09:58)
--- NOTE | 2016-10-12 11:22 | PN ---
Date/Time of Note Date/Time of Note DATE: 10/12/16 TIME: 11:21 Assessment/Plan Lines/Catheters IV [facility]ter [facility] (from [facility] Saline Lock Assessment/Plan Chief Complaint/Hosp Course Large mediastinal mass Patient has a long history of smoking Probable carcinoma She also has a hoarse voice with possible laryngeal nerve injury or involvement Patient has a 20% pneumothorax on the CAT scan with no pneumothorax on the chest x-ray Would need a CT-guided biopsy per radiology We repeat chest x-ray Patient does not want any further biopsies at this time Discussed with the patient and the sister Problems: Subjective 24 Hr Interval Summary Constitutional: improved Pain Control: mild Exam/Review of Systems Vital Signs Vitals Vital Signs Date Time Temp Pulse Resp B/P Pulse Ox O2 Delivery O2 Flow Rate FiO2 10/12/16 09:23 3.0 10/12/16 09:22 93 21 97 Nasal Cannula 10/12/16 08:12 97.8 126/73 10/09/16 20:49 21 Intake and Output 10/11/16 10/11/16 10/12/16 14:59 22:59 06:59 Intake Total 1070 ml 680 ml Balance 1070 ml 680 ml Exam ENMT: mucosa pink and moist, nl external ears & nose, nl lips & teeth, nl nasal mucosa & septum Neck: non-tender, supple Respiratory: clear to auscultation, normal air movement Cardiovascular: nl pulses, regular rate and rhythm Results Result Diagram: 10/12/16 0810 10/12/16 0810 PAVEL WELDON MD Oct 12, 2016 11:22
[2016-10-12] MEDS ORDERED: clonAZEPAM 0.5 MG TAB PO ONE (12:00)
--- NOTE | 2016-10-12 13:36 | PN ---
Date/Time of Note Date/Time of Note DATE: 10/12/16 TIME: 13:35 Assessment/Plan VTE Prophylaxis VTE Prophylaxis Intervention: SCD's Lines/Catheters IV Catheter Type (from Nrsg): Saline Lock Assessment/Plan Assessment/Plan 61 yo F with pmhx schizoaffective d/o, extensive tobacco hx, lung mass diagnosed ~1 month ago at OSH ([facility]) presented with SOB. Found to have large L lung mass clinically consistent with malignancy, imaging also revealed L sided partial PTX as well as bone mets. #lung mass: pt refusing biopsy. 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 #leukocytosis: malignancy v steroids. stopped #schizoaffective: cont invega Dispo: Pt has signed on with [place] hosp[facility] agency. Agency currently working on SNF placement for patient. Both hospice and pt's HMO working on placement Subjective 24 Hr Interval Summary Free Text/Dictation Hospice and her HMO are both working on dispo Pt sleeping on my eval this AM Exam/Review of Systems Vital Signs Vitals Vital Signs Date Time Temp Pulse Resp B/P Pulse Ox O2 Delivery O2 Flow Rate FiO2 10/12/16 09:23 3.0 10/12/16 09:22 93 21 97 Nasal Cannula 10/12/16 08:12 97.8 126/73 10/09/16 20:49 21 Intake and Output 10/11/16 10/11/16 10/12/16 15:00 23:00 07:00 Intake Total 1070 ml 680 ml Balance 1070 ml 680 ml Exam nad wearing NC resp nonlabored no abd distension no rashes Results Result Diagram: 10/12/16 0810 10/12/16 0810 Results 24 hrs Laboratory Tests Test 10/11/16 17:02 10/11/16 20:02 10/12/16 08:10 10/12/16 08:28 Bedside Glucose 83 98 123 White Blood Count 10.5 Red Blood Count 4.42 Hemoglobin 12.1 Hematocrit 37.6 Mean Corpuscular Volume 85.1 Mean Corpuscular Hemoglobin 27.4 L Mean Corpuscular Hemoglobin Concent 32.2 Red Cell Distribution Width 12.0 Platelet Count 387 Mean Platelet Volume 8.8 Neutrophils % 75.7 Lymphocytes % 13.4 L Monocytes % 9.4 Eosinophils % 0.9 Basophils % 0.2 Nucleated Red Blood Cells % 0.0 Neutrophils # 7.9 H Lymphocytes # 1.4 Monocytes # 1.0 H Eosinophils # 0.1 Basophils # 0.0 Nucleated Red Blood Cells # 0.0 Sodium Level 125 L Potassium Level 3.5 Chloride Level 86 L Carbon Dioxide Level 35 H Anion Gap 8 Blood Urea Nitrogen 17 Creatinine 0.66 Glucose Level 118 Calcium Level 9.4 Test 10/12/16 12:46 10/12/16 13:05 Bedside Glucose 66 L 76 Medications Medications Current Medications Ondansetron HCl (Zofran Inj) 4 mg Q6H PRN IV NAUSEA AND/OR VOMITING; Start 10/07 at 19:30 Acetaminophen (Tylenol Tab) 650 mg Q6H PRN PO PAIN LEVEL 1-3 OR FEVER Last administered on 10/11/16 00:53; Admin Dose 650 MG; Start 10/07/16 at 19:30 Acetaminophen/ Hydrocodone Bitart ([place] (5/325)) 1 tab Q6H PRN PO MODERATE PAIN LEVEL 4-6 Last administered on 10/12/16 12:49; Admin Dose 1 TAB; Start 10/07/16 at 19:30 Morphine Sulfate (morphine) 2 mg Q4H PRN IV SEVERE PAIN LEVEL 7-10 Last administered on 10/10/16 02:00; Admin Dose 2 MG; Start 10/07/16 at 19:30 Docusate Sodium (Colace) 100 mg Q12H PRN PO CONSTIPATION Last administered on 21:51; Admin Dose 100 MG; Start 10/07/16 at 19:30 Magnesium Hydroxide (Milk Of Mag) 30 ml DAILY PRN PO CONSTIPATION Last administered on 10/11/16 00:44; Admin Dose 30 ML; Start 10/07/16 at 19:30 Sodium Biphosphate/ Sodium Phosphate (Fleet Enema) 133 ml DAILY PRN MD CONSTIPATION; Start 10/07/16 at 19:30 Heparin Sodium (Porcine) (Heparin (5000 Units/0.5 ml)) 5,000 unit Q12 SC Last administered on 10/12/16 09:58; Admin Dose 5,000 UNIT; Start 10/07/16 at 21:00 Nitroglycerin (Nitroglycerin (Sl Tab) 0.4 Mg) 1 tab Q5M PRN SL ANGINA; Start at 19:30 Salmeterol Xinafoate/ Fluticasone (Advair 250/50 Diskus) 1 inh BID INH Last administered on 10/12/16 09:43; Admin Dose 1 INH; Start 10/07/16 at 21:00 Miscellaneous Information 1 ea NOTE XX ; Start 10/07/16 at 19:30 Glucose (Glutose) 15 gm Q15M PRN PO DECREASED GLUCOSE; Start 10/07/16 at 19:30 Glucose (Glutose) 22.5 gm Q15M PRN PO DECREASED GLUCOSE; Start 10/07/16 at 19:30 Dextrose (D50w Syringe) 25 ml Q15M PRN IV DECREASED GLUCOSE; Start 10/07/16 at 19:30 Dextrose (D50w Syringe) 50 ml Q15M PRN IV DECREASED GLUCOSE; Start 10/07/16 at 19:30 Glucagon (Glucagen) 1 mg Q15M PRN IM DECREASED GLUCOSE; Start 10/07/16 at 19:30 Glucose (Glutose) 15 gm Q15M PRN BUCCAL DECREASED GLUCOSE; Start 10/07/16 at 19: 30 Clonazepam (Klonopin) 1 mg Q8H PRN PO ANXIETY Last administered on 10/12/16 11 :39; Admin Dose 1 MG; Start 10/08/16 at 06:30 Miscellaneous Information 1.5 mg DAILY PO ; Start 10/08/16 at 09:00; Status UNV Tiotropium [place] (Spiriva) 1 inh DAILY INH Last administered on 10/12/16 09: 43; Admin Dose 1 INH; Start 10/08/16 at 09:00 Diagnostic Test (Pha) (Accu-Chek) 1 ea 02 XX ; Start 10/09/16 at 02:00 Miscellaneous Information (*Order Clarification Bulletin) MEDICATION REQUIRES CLARIFICATI... Q8H XX Last administered on 10/10/16 00:00; Admin Dose 1 EA; Start 10/08/16 at 16:00 Lorazepam (Ativan) 0.5 mg Q6H PRN PO ANXIETY Last administered on 10/09/16 22: 46; Admin Dose 0.5 MG; Start 10/09/16 at 21:00 Zolpidem Tartrate (Ambien) 5 mg HS PRN PO INSOMNIA; Start 10/11/16 at 23:30 JESSIKA KRISHNA MD Oct 12, 2016 13:36
[2016-10-12] MEDS ORDERED: IPRA3AMP NEB (16:07)
--- NOTE | 2016-10-12 16:10 | DS ---
Date/Time of Note Date/Time of Note DATE: 10/12/16 TIME: 16:07 Discharge Summary Admission/Discharge Info Admit Date/Time Oct 07, 2016 at 21:27 Discharge Date/Time Patient Condition: Guarded Consults pulmonology, CT surgery Procedures CXR 7.8 IMPRESSION: 1. Possible left hilar mass in left upper lobe atelectasis. Correlation with CT scan of the chest with contrast advised. 2. Otherwise normal chest x-ray. CT Chest 7.9 IMPRESSION: 1. Large confluent mass throughout the middle mediastinum consistent with neoplasm. There is associated marked narrowing of the distal trachea, narrowing of the left mainstem bronchus, narrowing of the left main pulmonary artery, and occlusion of the left upper lobe bronchus. 2. Small nodules in the left lower lobe posteriorly measuring 0.7 cm and 0.9 cm. 3. Mild atelectasis at the right lung base posteriorly. 4. Atherosclerosis. 5. Coronary artery calcification. 6. Very small right pleural effusion and small left pleural effusion. 7. Left pneumothorax measuring approximately 20%. 8. Hepatomegaly. No focal hepatic lesion. 9. Lytic lesion of the right side of L4 vertebral body measuring 1.8 x 1.9 cm suspicious for neoplasm. 10. Compression fractures of L4 and T7 vertebrae. CXR 7.11 Hx of Present Illness Chief complaint: Shortness of breath 1 week 61-year-old female history of remote smoking with COPD who presents with COPD flare. She states that she had a recent hospitalization approximately 1-2 weeks ago at [facility]. She has worsening symptoms over the last week despite taking her medications. No chest pain, no pleuritic pain, no calf swelling, no fevers or chills. Scant phlegm production. Allergies: Penicillin Medications: See MAR Hospital Course Pt admitted for SOB, found to have large lung mass causing pneumothorax. Mass highly suggestive of malignancy. Pt refused any lung mass work up including biopsy, also refused chest tube for pneumothorax. Risks/benefits of further eval including finding out all of her options discussed with patient at length. She still refused. Pt discharged to SNF with plan to shortly transition to hospice given her advanced lung cancer. Changes from admit meds: added PRN TONIO Pt to remain on PRN supplemental O2 at facility Home Meds Reported Medications Hydroxyzine Hcl* (Hydroxyzine Hcl*) 25 Mg Tablet, 25 MG PO Q8H Y for ITCHING, # 30 TAB 10/07/16 Paliperidone (Invega) 1.5 Mg Tab.er.24, 1.5 MG PO DAILY, TAB 10/07/16 Tiotropium [place]* (Spiriva*) 18 Mcg Cap.w.dev, 1 CAP INHALATION DAILY, #30 CAP 10/07/16 Clomipramine Hcl* (Clomipramine Hcl*) 75 Mg Capsule, 75 MG PO DAILY, CAP 10/07/16 Salmeterol Xinaf/Fluticasone* (Advair*) 250-50 Diskus Inhaler, 1 INH INHALATION BID, #1 INHALER 10/07/16 Clonazepam* (Clonazepam*) 1 Mg Tablet, 1 MG PO Q8H Y for ANXIETY, TAB 10/07/16 Discontinued Reported Medications Aspirin Ec (Aspir 81) 81 Mg Tablet.dr 09/18/09 Metoprolol Tartrate* (Lopressor*) 25 Mg Tab 09/18/09 Fluoxetine Hcl* (Prozac*) 20 Mg Capsule 09/18/09 Temazepam* (Restoril*) 30 Mg Capsule 09/18/09 Clonazepam* (Klonopin*) 0.5 Mg Tab 09/18/09 Quetiapine Fumarate* (Seroquel*) 400 Mg Tablet 09/18/09 Albuterol Sulfate* (Proair HFA*) 8.5 Gm Hfa.aer.ad 09/18/09 Magnesium Hydroxide* (Milk Of Magnesia*) 800 Mg/5 Ml Oral.susp 09/18/09 Follow-up Plan SNF, hopefully transition to hospice very soon Primary Care Provider Anirudh Burrell Time spent on discharge: > 30 minutes Pending Labs Laboratory Tests Test 10/11/16 17:02 10/11/16 20:02 10/12/16 08:10 10/12/16 08:28 Bedside Glucose 83mg/dL (70-220) 98mg/dL (70-220) 123mg/dL (70-220) White Blood Count 10.510^3/ul (4.8-10.8) Red Blood Count 4.4210^6/ul (4.20-5.40) Hemoglobin 12.1g/dl (12.0-16.0) Hematocrit 37.6% (37.0-47.0) Mean Corpuscular Volume 85.1fl (82.0-101.0) Mean Corpuscular Hemoglobin 27.4pg (29.0-33.0) Mean Corpuscular Hemoglobin Concent 32.2g/dl (32.0-37.0) Red Cell Distribution Width 12.0% (11.5-14.5) Platelet Count 18351^3/UL (140-415) Mean Platelet Volume 8.8fl (7.4-10.4) Neutrophils % 75.7% (39.0-77.0) Lymphocytes % 13.4% (15.0-51.0) Monocytes % 9.4% (0.0-11.0) Eosinophils % 0.9% (0.0-7.0) Basophils % 0.2% (0.0-2.0) Nucleated Red Blood Cells % 0.0/100WBC (0.0-0.0) Neutrophils # 7.910^3/ul (1.6-7.5) Lymphocytes # 1.410^3/ul (0.8-2.9) Monocytes # 1.010^3/ul (0.3-0.9) Eosinophils # 0.110^3/ul (0.0-0.5) Basophils # 0.010^3/ul (0.0-0.1) Nucleated Red Blood Cells # 0.010^3/ul (0.0-0.0) Sodium Level 125mmol/L (135-144) Potassium Level 3.5mmol/L (3.5-5.1) Chloride Level 86mmol/L (97-110) Carbon Dioxide Level 35mmol/L (21-31) Anion Gap 8 (8-16) Blood Urea Nitrogen 17mg/dl (7-20) Creatinine 0.66mg/dl (0.44-1.00) Glucose Level 118mg/dl (70-220) Calcium Level 9.4mg/dl (8.4-10.2) Test 10/12/16 12:46 10/12/16 13:05 Bedside Glucose 66mg/dL (70-220) 76mg/dL (70-220) JESSIKA KRISHNA MD Oct 12, 2016 16:09
[2016-10-12] MEDS: LORAZEPAM 0.5 MG TAB PO PRN (18:38)
[2016-10-12] MEDS: ALBUTEROL/IPRATROPIUM (NEB) 3 ML AMP NEB PRN (18:44)
[2016-10-12 19:10] VITALS: BP 118/58; RESP 20
== END 2016-10-12 21:05 | DRG 190 ==
LOC: E/R 16:45 → TEL 21:27 → MS1 10-11 22:30
PROVIDERS: ADMIT Family Medicine; ATTEND Family Medicine
DX: J44.1 Chronic obstructive pulmonary disease with (acute) exacerbation (principal); J96.21 Acute and chronic respiratory failure with hypoxia; R64 Cachexia; J38.01 Paralysis of vocal cords and larynx, unilateral; C79.51 Secondary malignant neoplasm of bone; E22.2 Syndrome of inappropriate secretion of antidiuretic hormone; C34.92 Malignant neoplasm of unspecified part of left bronchus or lung; J93.9 Pneumothorax, unspecified; J98.11 Atelectasis; M84.58XA Pathological fracture in neoplastic disease, other specified site, initial encounter for fracture; Z66 Do not resuscitate; F25.9 Schizoaffective disorder, unspecified; Z87.891 Personal history of nicotine dependence; D63.8 Anemia in other chronic diseases classified elsewhere; D50.9 Iron deficiency anemia, unspecified; R49.0 Dysphonia; Z68.20 Body mass index [BMI] 20.0-20.9, adult; R16.0 Hepatomegaly, not elsewhere classified
CPT/HCPCS: 36600; 71010; 71260; 74177; 80048; 80061; 82533; 82728; 82803; 82962; 83036; 83540; 83735; 83930; 83935; 84100; 84300; 84439; 84443; 84466; 85025; 85610; 85730; 87040; 93005; 94640; 94644; 94660; 94664; 96372; 96374; 96375; C9113; J0171; J1644; J1815; J1956; J2060; J2270; J2920; J2930; J3105; J3475; J7040; Q9967